=== PATIENT | male | born 1950 | race Caucasian/White ===

== ENCOUNTER 2023-04-13 09:25 | Emergency (ER) | payer MEDICARE, OTHER, SELFPAY ==
[2023-04-13 10:17] VITALS: BP 137/84; PULSE 54; RESP 18; TEMP 36.6; O2SAT 95; BMI 31.2
[2023-04-13 12:18] VITALS: BP 144/76; PULSE 47; RESP 16; TEMP 36.4; O2SAT 100
--- NOTE | 2023-04-13 12:39 | ED_ITS ---
HPI - Eye Problem General Chief complaint: Eye Problems Stated complaint: swollen under eye Time Seen by Provider: 04/13/23 12:15 Source: patient Mode of arrival: ambulatory Limitations: no limitations History of Present Illness HPI Narrative: 72 yo male Presents to the ER for evaluation of swelling and redness under the left eye that started yesterday when he woke up. Patient denies any injury or bug bite to the area. He denies any vision changes or drainage from the eye. He states it has been slowly getting little bit more swollen and red since yesterday. He denies any pain with movements of the eye. No headache, fever, chills, rash other were on the body. chief complaint: eye redness Onset (ago): day(s) (1) Onset description: gradual Duration: progressively worsening Location: left eye Eye Symptoms: redness and pain Place: home Mechanism: none Severity: moderate If Pain, Quality: aching Associated symptoms: none Treatments Prior to Arrival: none Related Data Patient tetanus UTD: Yes Home Medications Medication Instructions Recorded Confirmed atorvastatin 80 mg tablet 80 mg PO DAILY 10/12/21 10/12/21 enoxaparin 100 mg/mL subcutaneous mg subcut 10/12/21 10/12/21 syringe fenofibrate nanocrystallized 145 145 mg PO DAILY 10/12/21 10/12/21 mg tablet umeclidinium 62.5 mcg-vilanterol 1 ea inhalation DAILY 10/12/21 10/12/21 25 mcg/actuation powdr for inhalation (Anoro Ellipta) warfarin 5 mg tablet mg PO 10/12/21 10/12/21 Previous Rx's Medication Instructions Recorded erythromycin 5 mg/gram (0.5 %) eye 0.5 inch ophthalmic (eye) TID 7 01/26/22 ointment days #1 g amoxicillin 875 mg-potassium 1 tab PO BID #20 tabs 04/13/23 clavulanate 125 mg tablet Allergies Allergy/AdvReac Type Severity Reaction Status Date / Time bee pollen [BEE STINGS] Allergy Mild HIVES Unverified 01/26/22 10:56 Review of Systems Review of Systems: Yes all other systems are reviewed and are negative PMFSH Past Medical History Medical History Arterial embolism and thrombosis of lower extremity Social History Social History Advance Directives: Yes Advance Directives Information Provided: No Advance Directives on File: No Physical Exam Vital Signs: Vital Signs: Last Vital Signs Temp 97.5 F 04/13/23 12:18 Pulse 47 L 04/13/23 12:18 Resp 16 04/13/23 12:18 BP 144/76 H 04/13/23 12:18 Pulse Ox 100 04/13/23 12:18 O2 Del Method Room Air 04/13/23 12:18 BMI result Body Mass Index 31.2 Appearance: Alert. Oriented X3. No acute distress. Head: normocephalic, atraumatic. Eyes: normal inspection of the right eye and associated structures. Left upper eyelid and lower eyelid are normal to inspection, no super orbital swelling or erythema. In the area underneath left eye there is moderate erythema and warmth, mild tenderness. No induration or fluctuance. No drainage from the eye. Pupils equal, round and reactive to light. EOMI, no pain with Extraocular movement ENT: Pharynx normal. No tonsillar swelling or exudate. Neck: Normal inspection. Neck supple. No lymphadenopathy CVS: Normal heart rate and rhythm. Pulses normal. Respiratory: No respiratory distress. Breath sounds normal. Skin: Skin warm and dry. Normal skin color. Normal skin turgor. No rashes. Extremities: No lower extremity edema. No joint swelling. Neuro/psych: Oriented X 3. No motor deficit. No sensory deficit. CN II-XII intact. Normal speech and cognition. Medical Decision Making Medical Decision Making MDM Narrative: 72-year-old male presenting to the ER for evaluation of nontraumatic swelling and erythema under the left eye that started yesterday. He has no pain with extraocular movements, fever, chills, headache, neck pain. No vision changes or photophobia. Exam is most consistent with preseptal cellulitis. Will start on Augmentin, no MRSA risk factors. No open wounds. At this time patient was counseled on diagnosis and management along with return precautions. He expressed understanding and all questions were answered. Stable for discharge home. Differential Diagnosis Differential Diagnoses: The differential diagnosis associated with the presentation includes preseptal cellulitis, periorbital cellulitis, orbital cellulitis, insect bite, trauma, abscess External Record Review External record reviewed: Outpatient record Tests considered The following testing was considered but not selected: Considered CT scan of the orbit however low suspicion for orbital cellulitis at this time Prescription Management I considered prescription management with: Pain Medication and Antibiotic Critical Care Time Critical Care Time Critical Care Time: No Discharge Plan Discharge Clinical Impression: Preseptal cellulitis of left eye Patient Disposition: Home, Self-Care Instructions: Periorbital Cellulitis in Adults (ED) Additional Instructions: Take the prescribed antibiotics as directed, complete the entire course and do not miss any doses Use warm compresses to the eye several times per day Follow-up with your primary care doctor to ensure complete resolution. If you develop new or worsening symptoms call 911 or come back to the ER for fu rther evaluation. Prescriptions: New amoxicillin-pot clavulanate 875-125 mg tablet 1 tab PO BID Qty: 20 0RF No Action erythromycin 5 mg/gram (0.5 %) ointment 0.5 inch ophthalmic (eye) TID 7 Days Qty: 1 1RF Anoro Ellipta 62.5-25 mcg/actuation blister with device 1 ea inhalation DAILY enoxaparin 100 mg/mL syringe subcut atorvastatin 80 mg tablet 80 mg PO DAILY warfarin 5 mg tablet PO fenofibrate nanocrystallized 145 mg tablet 145 mg PO DAILY
--- NOTE | 2023-04-13 13:07 | PC.NURSE ---
aox4. swollen left eyelid. denies pain to left eye unlss closes it and 2/10. no vision changes per pt report. NAD. +CSM
== END 2023-04-13 13:11 | disposition home or self-care (01) ==
PROVIDERS: Emergency Provider Emergency Medicine; PCP Internal Medicine
DX: L03.213 Periorbital cellulitis (principal); H57.12 Ocular pain, left eye; Z86.718 Personal history of other venous thrombosis and embolism; Z79.01 Long term (current) use of anticoagulants; Z79.899 Other long term (current) drug therapy
CPT/HCPCS: 99283; 99284

== ENCOUNTER 2023-06-03 13:34 | Outpatient (AMB) | payer MEDICARE, OTHER, SELFPAY ==
[2023-06-03 13:43] VITALS: BP 130/76; PULSE 62; TEMP 36.6; O2SAT 98; BMI 32.2
--- NOTE | 2023-06-03 13:43 | AM.OFFWIN_ITS ---
Intake Vital Signs 06/03/23 13:43 Height 6 ft Weight 237 lb 6 oz BMI 32.2 BP 130/76 Blood Pressure Location Rt brachial Position Sitting Pulse 62 Pulse Source Pulse Oximeter Temp 97.8 F Temp Source Temporal Artery Scan Pulse Oximetry (%) 98 Intake Visit Reasons: EP RT eye ?Cellulitis Intake Note: pt is here for c/o right eye inflammation Patient Tobacco Use Status: Never used Tobacco Allergies bee pollen [BEE STINGS] Allergy (Mild, Verified 06/03/23 13:43) HIVES Do you need a note to return to daycare/school/sports/work: Yes HPI HPI Comments History of Present Illness Details This is a 72-year-old male with a past medical history of chronic sinusitus, hyperlipidemia and DVT currently maintained on Coumadin presenting for evaluation of redness and swelling under his right eye that has been present for the past 2 days. Of note, the patient was seen in the emergency department for a left preseptal cellulitis on April 13, 2023. The patient states that his symptoms resolved after completing his course of antibiotic therapy. Patient denies having any visual changes but does describe some discomfort of his right lower eyelid. He also denies having any fevers, chills or discharge from his right eye. [facility] Medical History Arterial embolism and thrombosis of lower extremity Social History Alcohol intake: current Alcohol intake frequency: holidays/special occasions only Patient Tobacco Use Status: Never used Tobacco Substance Use Type: Marijuana Review of Systems Const All systems reviewed & are unremarkable except as noted in HPI and below Denies chills and Denies fever(s) Eyes Reports as per HPI, Denies blurry vision, Denies exophthalmos, Denies change in vision, Reports eye pain (right lower eyelid) and Denies photophobia ENT Reports no additional complaints Skin/Breast Reports system reviewed and no additional complaints, except as documented Jayant/Lymph Reports no additional complaints Aller/Immun Reports no additional complaints Physical Exam Vital Signs: Last Vital Signs Temp 97.8 F 06/03/23 13:43 Pulse 62 06/03/23 13:43 BP 130/76 06/03/23 13:43 Pulse Ox 98 06/03/23 13:43 BMI result Body Mass Index 32.2 Patient is afebrile Const General: cooperative, healthy appearing, comfortable, no acute distress and well developed Nutritional Appearance: overweight Orientation/consciousness: patient oriented x3 Limitations: no limitations HEENT Head: Yes normal to inspection and Yes normocephalic Ears: hearing grossly normal bilaterally, external ears normal, TM's normal bilaterally and EAC's normal General nose exam: Normal external nose present Face and sinus: Yes normal facial exam and Yes sinuses nontender Mouth: Normal oral and palatal mucosa present Eyes General: appearance abnormal, both eyes (erythema and edema right lower ) Visual Harry: normal visual harry by confrontation Alignment and Position: alignment normal Periorbital: periorbital findings abnormal (erythema and edema right lower preorbital region) Eyelids: Yes eyelid abnormality (single pustule noted on inner mucous surface of right lower eyelid; tender) Conjunctivae: conjunctivae normal Sclerae: sclerae normal Pupils: Equal, round and reactive pupils present EOM: EOMs intact bilaterally Direct Ophthalmoscopy: no photophobia and No photophobia Skin General skin exam: other (erythema and edema right lower eyelid as noted above) Neuro General: patient oriented x3 Cranial nerves: Yes Equal, round and reactive pupils present Psych Appearance: grossly normal Mental Status: mental status grossly normal Insight: Good insight present (Psych) Judgement: Good judgement present (Psych) Assessment & Plan Assessment & Plan (1) Preseptal cellulitis of right lower eyelid: Code(s): L03.213 - Periorbital cellulitis Plan: There are no clinical abnormalities noted of the globe, conjunctiva or pupil of the right eye; there is edema and erythema involving the preseptal tissue of the right lower eyelid. Patient will be discharged home with cefpodoxime to take BID x 7 days. Of note, the patient has an appointment with ENT next week and he is urged to discuss his recurrent preseptal cellulitis with his ENT provider. Coding Level of Care Code Est Pt Level 3 (07211) Diagnoses Preseptal cellulitis of right lower eyelid L03.213 Time Spent (min) 20
== END 2023-06-03 14:28 | disposition home or self-care (01) ==
PROVIDERS: PCP Internal Medicine; Visit Provider Physician Assistant
DX: L03.213 Periorbital cellulitis (principal)
CPT/HCPCS: 99213

== ENCOUNTER 2023-07-11 07:50 | Day surgery (SDC) | payer MEDICARE, OTHER, SELFPAY ==
[2023-07-07 10:03] VITALS: BMI 32.9
[2023-07-07 16:06] VITALS: BMI 32.9
--- NOTE | 2023-07-08 07:47 | MHC.SHP ---
Pre-Procedural Eval Section A Date of Service: 07/08/23 The patient is an INPATIENT: No Changes since office visit: No Cold of Flu in the past 2 weeks, No New Medical Problems, No Changes in Medication and No Patient answered all questions The History & Physical has been completed within 30 days and I have reviewed it.: Yes Section B Chief Complaint: Age-related nuclear cataract, right eye Allergies: Allergies Allergy/AdvReac Type Severity Reaction Status Date / Time bee pollen [BEE STINGS] Allergy Mild HIVES Verified 06/03/23 13:43 Plan Diagnosis/Plan: Unchanged I have reviewed the history and physical and performed a pertinent physical examination on my patient. No changes have occurred unless specified. Time Spent With Patient Time: Total time managing care of this patient today ____ minutes.
--- NOTE | 2023-07-08 09:46 | P.CONAN_ITS ---
Documented by User: Giselle Salinas NP 07/08/23 09:47 HPI - Anesthesia Eval Consult details Narrative: 72yo M for Right Cataract Extraction IOL Insertion Medically cleared Warfarin for DVT No previous cataract on record PMF Active Problems Active Problems: All Active Problems (Updated 07/07/23 @ 16:12 by Stephanie Shay, RN) Preseptal cellulitis of right lower eyelid (Acute) Blepharitis (Acute) Past Medical History Medical History (Updated 07/11/23 @ 08:44 by Sophia Sanders RN) Hx of blood clots Wears dentures Cataract History of DVT (deep vein thrombosis) Pre-diabetes PAD (peripheral artery disease) Elevated cholesterol COPD (chronic obstructive pulmonary disease) Seasonal allergies Arterial embolism and thrombosis of lower extremity Surgical History Surgical History (Updated 07/11/23 @ 08:58 by Lori Garnica MD) DVT (deep venous thrombosis) Hx of colonoscopy Social History Social History Household Members: Spouse Housing: House Are you a primary health care specialist to a significant other at home: No Do you presently have visiting nurse or other home services: No Alcohol intake: current Alcohol intake frequency: holidays/special occasions only Comment: aware of trip hazard Patient Tobacco Use Status: Former Tobacco user Quit Date: 11/2022 Tobacco use type: Cigarette Use of substances other than those prescribed or required for medical reasons: Yes Substance Use Type: Marijuana Substance Use Frequency: Daily Have you been hit, kicked, punched, or otherwise hurt by someone within the past year? If so, by whom?: No Are you DNR?: No Advance Directives: No Advance Directives Information Provided: Yes Advance Directives on File: No Recently lost weight without trying: No Nutrition Risks: No Nutritional Risk Meds Allergies Allergy/AdvReac Type Severity Reaction Status Date / Time bee pollen [BEE STINGS] Allergy Mild HIVES Verified 07/11/23 08:12 Home Medications Medication Instructions Recorded Confirmed Last Taken Type umeclidinium 62.5 mcg-vilanterol 1 ea inhalation DAILY 10/12/21 07/07/23 Unknown History 25 mcg/actuation powdr for inhalation (Anoro Ellipta) warfarin 5 mg tablet mg PO 10/12/21 10/12/21 07/09/23 History atorvastatin 40 mg tablet 40 mg PO DAILY 06/03/23 07/07/23 Unknown History loratadine 10 mg tablet 10 mg PO DAILY PRN Allergy Symptoms 06/03/23 07/07/23 Unknown History Exam Height,Weight and Vital Signs: Height 5 ft 11 in Weight 107.048 kg Assessment and Plan Assessment Anesthesia Assessment: Chart Reviewed Documented by User: Lori Garnica MD 07/11/23 09:00 HPI - Anesthesia Eval Consult details Narrative: 72yo M for Right Cataract Extraction IOL Insertion Medically cleared Warfarin for DVT. Has been on warfarin for about 10years. Only omitted yesterday's dose No previous cataract on record PMFSH Active Problems Active Problems: All Active Problems (Updated 07/11/23 @ 08:43 by Lori Garnica MD) Preseptal cellulitis of right lower eyelid (Acute) Blepharitis (Acute) Cellulitis left eyelid 04/2023, Cellulitis right eyelid 06/2020. Had course of oral antibiotics for both. Have since resolved Last dose of warfarin 07/09/23 Past Medical History Medical History (Updated 07/11/23 @ 08:44 by Sophia Sanders RN) Hx of blood clots Wears dentures Cataract History of DVT (deep vein thrombosis) Pre-diabetes PAD (peripheral artery disease) Elevated cholesterol COPD (chronic obstructive pulmonary disease) Seasonal allergies Arterial embolism and thrombosis of lower extremity Family History Family history of problems with anesthesia: No Surgical History Surgical History (Updated 07/11/23 @ 08:58 by Lori Garnica MD) DVT (deep venous thrombosis) Hx of colonoscopy History of Problems with Anesthesia: No Social History Social History Household Members: Spouse Housing: House Are you a primary health care specialist to a significant other at home: No Do you presently have visiting nurse or other home services: No Alcohol intake: current Alcohol intake frequency: holidays/special occasions only Comment: aware of trip hazard Patient Tobacco Use Status: Former Tobacco user Quit Date: 11/2022 Tobacco use type: Cigarette Use of substances other than those prescribed or required for medical reasons: Yes Substance Use Type: Marijuana Substance Use Frequency: Daily Have you been hit, kicked, punched, or otherwise hurt by someone within the past year? If so, by whom?: No Are you DNR?: No Advance Directives: No Advance Directives Information Provided: Yes Advance Directives on File: No Recently lost weight without trying: No Nutrition Risks: No Nutritional Risk Meds Allergies Allergy/AdvReac Type Severity Reaction Status Date / Time bee pollen [BEE STINGS] Allergy Mild HIVES Verified 07/11/23 08:12 Home Medications Medication Instructions Recorded Confirmed Last Taken Type umeclidinium 62.5 mcg-vilanterol 1 ea inhalation DAILY 10/12/21 07/07/23 Unknown History 25 mcg/actuation powdr for inhalation (Anoro Ellipta) warfarin 5 mg tablet mg PO 10/12/21 10/12/21 07/09/23 History atorvastatin 40 mg tablet 40 mg PO DAILY 06/03/23 07/07/23 Unknown History loratadine 10 mg tablet 10 mg PO DAILY PRN Allergy Symptoms 06/03/23 07/07/23 Unknown History Exam Height,Weight and Vital Signs: Height 5 ft 11 in Weight 107.048 kg Vital Signs Temp Pulse Resp BP Pulse Ox O2 Del Method 07/11/23 08:36 98.0 F 50 18 151/83 H 97 Room Air Airway Mallampati Class: III TM Dist: >3cm Neck ROM: Full Denture: Upper Loose/Missing/Broken Teeth: Yes (Missing some teeth bottom. Denies broken or loose teeth) Heart: RRR Lungs: CATB. Diminished Assessment and Plan Assessment Anesthesia Assessment: Anesthesia Plan Discussed Final Anesthetic Review Family History of Problems with Anesthesia: No History of Problems with Anesthesia: No NPO: Yes ASA Class: III Final Preanesthetic Review: No Changes in Pt Med Stat, Meds/Allgs Chart Reviewed, Consent Obtained/Reviewed and Anes Risks/Benef Reviewed Patient Risk: Intermediate Procedure Risk: Low Assessment/Block/Sedation in SS: Assess/Block/Sedation-SS Anesthetic Plan Anesthetic Plan: MAC: Disposition: Standard PACU
[2023-07-11] MEDS: Lactated Ringers 500 ML 50 ML IV (08:22)
[2023-07-11] MEDS: Ketorolac Tromethamine 0.5% Op 5 ML DROPS 1 DROP EYE-RIGHT ×3 (08:23→08:34)
[2023-07-11] MEDS: Tropicamide 1 % Ophth Sol 3 ML BTL 1 DROP EYE-RIGHT ×3 (08:23→08:34)
[2023-07-11] MEDS: Phenylephrine HCL 2.5% Oph SoL 2 ML BOTTLE 1 DROP EYE-RIGHT ×3 (08:23→08:34)
[2023-07-11] MEDS: Tetracaine HCl/PF 0.5% Oph Sol 4 ML DROPS 1 DROP EYE-RIGHT (08:23)
[2023-07-11] MEDS: Cyclopentolate 1 % Ophth Sol 2 ML DRPBTL 1 DROP EYE-RIGHT ×3 (08:23→08:34)
[2023-07-11 08:36] VITALS: BP 151/83; PULSE 50; RESP 18; TEMP 36.7; O2SAT 97
--- NOTE | 2023-07-11 09:42 | HO.PNOPHT ---
Ophthalmology Procedure Procedure Date of Service: 07/11/23 Ophthalmology Viscoelastic: Healcharissa Duet Dual Pack Pro Ophthalmology Lenses: TECNIS [id number] (19.5) Procedure Notes: PREOPERATIVE DIAGNOSIS: Decreased visual acuity right eye secondary to cataract POSTOPERATIVE DIAGNOSIS: Same PROCEDURE: Right cataract extraction with intraocular lens insertion SURGEON: Marvin Jaramillo M.D. ANESTHESIA: Topical/MAC ESTIMATED BLOOD LOSS: None COMPLICATIONS: None After obtaining informed consent, the patient was brought to the operating room suite and placed in the supine position. After adequate sedation per anesthesia, topical drops of Tetracaine were given to the right eye. The eye was then prepped and draped in the usual sterile fashion. The operating room microscope was then positioned over the operative eye and a lid speculum placed. A paracentesis was created. Viscoelastic was then instilled into the anterior chamber. A three plane incision was then created temporally, utilizing a 2.85 mm keratome. Capsulotomy forceps were then utilized to create a circular tear capsulotomy. Hydrodissection and hydrodelineation were carried out until adequate mobilization of the nucleus occurred. Phacoemulsification was then utilized to remove the dense central nucleus followed by removal of the cortical material utilizing the automated aspiration irrigation unit. Viscoelastic was instilled into the posterior capsular bag followed by placement of a posterior chamber intraocular lens without difficulty. The residual Viscoelastic was then removed utilizing the automated IA machine. The wound was checked and found to be watertight. The patient tolerated the procedure well and the lid speculum was removed. Intracameral injection of Vigamox 0.1 mL followed by a subtenon injection of Kenalog-40 0.2 mL were administered. The patient will be seen in the a.m.
[2023-07-11 10:08] VITALS: BP 153/86; PULSE 54; RESP 17; TEMP 36.2; O2SAT 98
== END 2023-07-11 10:11 | disposition home or self-care (01) ==
PROVIDERS: PCP Internal Medicine; Visit Provider Ophthalmology
PROC: (CPT 66985; principal; 2023-07-11 10:00)
DX: H25.11 Age-related nuclear cataract, right eye (principal); H54.7 Unspecified visual loss; H40.013 Open angle with borderline findings, low risk, bilateral; H18.413 Arcus senilis, bilateral; H43.393 Other vitreous opacities, bilateral; H11.153 Pinguecula, bilateral; E78.00 Pure hypercholesterolemia, unspecified; R73.03 Prediabetes; I73.9 Peripheral vascular disease, unspecified; J44.9 Chronic obstructive pulmonary disease, unspecified; Z86.718 Personal history of other venous thrombosis and embolism; Z79.01 Long term (current) use of anticoagulants; Z79.899 Other long term (current) drug therapy; Z79.51 Long term (current) use of inhaled steroids; Z87.891 Personal history of nicotine dependence
CPT/HCPCS: 66984; J2250; J3010; J3301; V2632

== ENCOUNTER 2023-07-25 06:00 | Day surgery (SDC) | payer MEDICARE, OTHER, SELFPAY ==
[2023-07-07 16:10] VITALS: BMI 32.9
--- NOTE | 2023-07-22 07:16 | MHC.SHP ---
Pre-Procedural Eval Section A Date of Service: 07/22/23 The patient is an INPATIENT: No Changes since office visit: No Cold of Flu in the past 2 weeks, No New Medical Problems, No Changes in Medication and No Patient answered all questions The History & Physical has been completed within 30 days and I have reviewed it.: Yes Section B Chief Complaint: Age-related nuclear cataract, left eye Allergies: Allergies Allergy/AdvReac Type Severity Reaction Status Date / Time bee pollen [BEE STINGS] Allergy Mild HIVES Verified 07/11/23 08:12 Plan Diagnosis/Plan: Unchanged I have reviewed the history and physical and performed a pertinent physical examination on my patient. No changes have occurred unless specified. Time Spent With Patient Time: Total time managing care of this patient today ____ minutes.
--- NOTE | 2023-07-22 09:31 | HO.ANESPROP2 ---
Documented by User: Giselle Salinas NP 07/22/23 09:32 HPI - Anesthesia Eval Consult details Narrative: 72yo M for Cataract Extraction IOL Insertion PCP cleared Right eye 07/11/23: Fent 50, Midaz 1, Glyco 0.2 Warfarin for DVT/PAD PMFSH Active Problems Active Problems: All Active Problems (Updated 07/11/23 @ 08:44 by Sophia Sanders RN) Preseptal cellulitis of right lower eyelid (Acute) Blepharitis (Acute) Past Medical History Medical History Hx of blood clots Wears dentures Cataract History of DVT (deep vein thrombosis) Pre-diabetes PAD (peripheral artery disease) Elevated cholesterol COPD (chronic obstructive pulmonary disease) Seasonal allergies Arterial embolism and thrombosis of lower extremity Family History Family history of problems with anesthesia: No Surgical History Surgical History DVT (deep venous thrombosis) Hx of colonoscopy History of Problems with Anesthesia: No Social History Social History Household Members: Spouse Housing: House Are you a primary summer child caregiver to a significant other at home: No Do you presently have visiting nurse or other home services: No Alcohol intake: current Alcohol intake frequency: holidays/special occasions only Comment: aware of trip hazard Patient Tobacco Use Status: Former Tobacco user Quit Date: 11/2022 Tobacco use type: Cigarette Use of substances other than those prescribed or required for medical reasons: Yes Substance Use Type: Marijuana Substance Use Frequency: Daily Have you been hit, kicked, punched, or otherwise hurt by someone within the past year? If so, by whom?: No Are you DNR?: No Advance Directives: No Advance Directives Information Provided: Yes Advance Directives on File: No Recently lost weight without trying: No Nutrition Risks: No Nutritional Risk Meds Allergies Allergy/AdvReac Type Severity Reaction Status Date / Time bee pollen [BEE STINGS] Allergy Mild HIVES Verified 07/25/23 06:36 Home Medications Medication Instructions Recorded Confirmed Last Taken Type umeclidinium 62.5 mcg-vilanterol 1 ea inhalation DAILY 10/12/21 07/07/23 Unknown History 25 mcg/actuation powdr for inhalation (Anoro Ellipta) warfarin 5 mg tablet 5 mg PO DAILY 10/12/21 07/25/23 07/23/23 History atorvastatin 40 mg tablet 40 mg PO DAILY 06/03/23 07/07/23 Unknown History loratadine 10 mg tablet 10 mg PO DAILY PRN Allergy Symptoms 06/03/23 07/07/23 Unknown History Exam Height,Weight and Vital Signs: Height 5 ft 11 in Weight 107.048 kg Assessment and Plan Assessment Anesthesia Assessment: Chart Reviewed Final Anesthetic Review Family History of Problems with Anesthesia: No History of Problems with Anesthesia: No Documented by User: Juliana Loza MD 07/25/23 06:55 PMFSH Past Medical History Medical History Hx of blood clots Wears dentures Cataract History of DVT (deep vein thrombosis) Pre-diabetes PAD (peripheral artery disease) Elevated cholesterol COPD (chronic obstructive pulmonary disease) Seasonal allergies Arterial embolism and thrombosis of lower extremity Surgical History Surgical History DVT (deep venous thrombosis) Hx of colonoscopy Social History Social History Household Members: Spouse Housing: House Are you a primary summer child caregiver to a significant other at home: No Do you presently have visiting nurse or other home services: No Alcohol intake: current Alcohol intake frequency: holidays/special occasions only Comment: aware of trip hazard Patient Tobacco Use Status: Former Tobacco user Quit Date: 11/2022 Tobacco use type: Cigarette Use of substances other than those prescribed or required for medical reasons: Yes Substance Use Type: Marijuana Substance Use Frequency: Daily Have you been hit, kicked, punched, or otherwise hurt by someone within the past year? If so, by whom?: No Are you DNR?: No Advance Directives: No Advance Directives Information Provided: Yes Advance Directives on File: No Recently lost weight without trying: No Nutrition Risks: No Nutritional Risk Meds Allergies Allergy/AdvReac Type Severity Reaction Status Date / Time bee pollen [BEE STINGS] Allergy Mild HIVES Verified 07/25/23 06:36 Home Medications Medication Instructions Recorded Confirmed Last Taken Type umeclidinium 62.5 mcg-vilanterol 1 ea inhalation DAILY 10/12/21 07/07/23 Unknown History 25 mcg/actuation powdr for inhalation (Anoro Ellipta) warfarin 5 mg tablet 5 mg PO DAILY 10/12/21 07/25/23 07/23/23 History atorvastatin 40 mg tablet 40 mg PO DAILY 06/03/23 07/07/23 Unknown History loratadine 10 mg tablet 10 mg PO DAILY PRN Allergy Symptoms 06/03/23 07/07/23 Unknown History Exam Airway Mallampati Class: II TM Dist: >3cm Neck ROM: Full Denture: Upper Heart: rrr Lungs: cta Assessment and Plan Assessment Anesthesia Assessment: Anesthesia Plan Discussed Final Anesthetic Review NPO: Yes ASA Class: III Final Preanesthetic Review: No Changes in Pt Med Stat, Meds/Allgs Chart Reviewed and Consent Obtained/Reviewed Patient Risk: Intermediate Procedure Risk: Low Anesthetic Plan Anesthetic Plan: MAC: Disposition: Standard PACU
[2023-07-25] MEDS: Tetracaine HCl/PF 0.5% Oph Sol 4 ML DROPS 1 DROP EYE-LEFT (06:18)
[2023-07-25] MEDS: Cyclopentolate 1 % Ophth Sol 2 ML DRPBTL 1 DROP EYE-LEFT ×3 (06:21→06:37)
[2023-07-25] MEDS: Tropicamide 1 % Ophth Sol 3 ML BTL 1 DROP EYE-LEFT ×3 (06:23→06:39)
[2023-07-25] MEDS: Ketorolac Tromethamine 0.5% Op 5 ML DROPS 1 DROP EYE-LEFT ×3 (06:25→06:41)
[2023-07-25] MEDS: Phenylephrine HCL 2.5% Oph SoL 2 ML BOTTLE 1 DROP EYE-LEFT ×3 (06:27→06:43)
[2023-07-25] MEDS: Lactated Ringers 500 ML 50 ML IV (06:33)
[2023-07-25 06:35] VITALS: BP 135/91; PULSE 54; RESP 16; TEMP 36.2; O2SAT 97
--- NOTE | 2023-07-25 08:00 | HO.PNOPHT ---
Ophthalmology Procedure Procedure Date of Service: 07/25/23 Ophthalmology Viscoelastic: Healon Duet Dual Pack Pro Ophthalmology Lenses: TECAJAY CP0001 (19) Procedure Notes: PREOPERATIVE DIAGNOSIS: Decreased visual acuity left eye secondary to cataract POSTOPERATIVE DIAGNOSIS: Same PROCEDURE: Left cataract extraction with intraocular lens insertion SURGEON: Marvin Jaramillo M.D. ANESTHESIA: Topical/MAC ESTIMATED BLOOD LOSS: None COMPLICATIONS: None After obtaining informed consent, the patient was brought to the operation room suite and placed in the supine position. After adequate sedation per anesthesia, topical drops of Tetracaine were given to the left eye. The eye was then prepped and draped in the usual sterile fashion. The operating room microscope was then positioned over the operative eye and a lid speculum placed. A paracentesis was created. Viscoelastic was then instilled into the anterior chamber. A three plane incision was then created temporally, utilizing a 2.85 mm keratome. Capsulotomy forceps were then utilized to create a circular tear capsulotomy. Hydrodissection and hydrodelineation were carried out until adequate mobilization of the nucleus occurred. Phacoemulsification was then utilized to remove the dense central nucleus followed by removal of the cortical material utilizing the automated aspiration irrigation unit. Viscoat elastic was instilled into the posterior capsular bag followed by placement of a posterior chamber intraocular lens without difficulty. The residual Viscoat elastic was then removed utilizing the automated IA machine. The wound was check and found to be watertight. The patient tolerated the procedure well and the lid speculum was removed. Intracameral injection of Vigamox 0.1 mL followed by a subtenon injection of Kenalog-40 0.2 mL were administered. The patient will be seen in the a.m.
[2023-07-25 08:02] VITALS: BP 150/85; PULSE 48; RESP 20; TEMP 36.2; O2SAT 95
== END 2023-07-25 08:15 | disposition home or self-care (01) ==
PROVIDERS: PCP Internal Medicine; Visit Provider Ophthalmology
PROC: (CPT 66985; principal; 2023-07-25 07:30)
DX: H25.12 Age-related nuclear cataract, left eye (principal); H54.7 Unspecified visual loss; J44.9 Chronic obstructive pulmonary disease, unspecified; E78.5 Hyperlipidemia, unspecified; Z86.718 Personal history of other venous thrombosis and embolism; R73.03 Prediabetes; Z87.891 Personal history of nicotine dependence; F12.90 Cannabis use, unspecified, uncomplicated; Z79.01 Long term (current) use of anticoagulants; Z79.02 Long term (current) use of antithrombotics/antiplatelets; Z79.899 Other long term (current) drug therapy
CPT/HCPCS: 66984; J2250; J3010; J3301; V2632

== ENCOUNTER 2025-02-07 12:02 | Outpatient (AMB) | payer MEDICARE, OTHER, SELFPAY ==
[2025-02-07 12:21] VITALS: BP 100/50; PULSE 56; TEMP 36.8; O2SAT 97; BMI 33.5
--- NOTE | 2025-02-07 12:21 | AM.OFFWIN_ITS ---
Intake Vital Signs 02/07/25 12:21 Height 5 ft 11 in Weight 240 lb BMI 33.5 BP 100/50 L Blood Pressure Location Rt brachial Position Sitting Pulse 56 Pulse Source Pulse Oximeter Temp 98.2 F Temp Source Oral Pulse Oximetry (%) 97 Oxygen Delivery Method Room Air Intake Visit Reasons: EP severe back pain Intake Note: presents with low back pain, LT>RT for a few days, denies injury Patient Tobacco Use Status: Former Tobacco user Allergies bee pollen (BEE STINGS) Allergy (Mild, Verified 02/07/25 12:23) HIVES Do you need a note to return to daycare/school/sports/work: No HPI HPI Comments History of Present Illness Details History - The patient is a 74-year-old male pres enting with back pain due to muscle spasm. - The back pain started approximately th ree days ago without any known inciting event. - The pain is localized to the lower vinay k, predominantly on the left side, and does not radiate to the legs. - The pain is intermittent, exacerbated by movement, and has progressively worsened. - The patient has not taken any medicati on for the pain and has no history of using muscle relaxants. - The patient has not been comfortable a nd has pain with sitting, walking, or laying down. - He denies saddle anesthesia, numbness, tingling, incontinence, hematuria, dysuria, abd pain, n/v/d. - He denies rashes. - He denies trauma or falls. Physical Exam General: cooperative, healthy appearing and uncomfortable, patient oriented x3 Head: Normal to inspection, normocephalic/atraumatic Effort & Inspection: Normal respiratory effort and able to speak in complete sentences. Cardiac: RRR, no M/R/G noted. Normal S1 and S2. Respiratory: Clear to auscultation bilaterally. No w/r/r noted. Back/spine: No CVA tenderness bilaterally. Cervical, thoracic and lumbar spine normal to inspection. Cervical ROM normal, no midline spinous tenderness noted. Thoracic ROM normal, lumbar ROM normal. No midline vertebral spinous tenderness noted. No step offs noted. No TTP of the thoracic paraspinous or paravertebral muscles. TTP of the lumbar paraspinous or paravertebral muscles on the left. DTR are 2+ on the lower extremities noted. Ambulates with a steady gait, slowly Extremities: Straight leg raise test negative on right; Straight leg raise test negative on left; motor strength normal 5/5 bilaterally. Neuro: Sensation intact. Patient was informed and verbally consented to the use of an ambient scribe for clinic note documentation during this visit. [facility] Medical History Hx of blood clots Wears dentures Cataract History of DVT (deep vein thrombosis) Pre-diabetes PAD (peripheral artery disease) Elevated cholesterol COPD (chronic obstructive pulmonary disease) Seasonal allergies Arterial embolism and thrombosis of lower extremity Surgical History DVT (deep venous thrombosis) Hx of colonoscopy Social History Household Members: Spouse Housing: House Are you a primary health care coordinator to a significant other at home: No Do you presently have visiting nurse or other home services: No Alcohol intake: current Alcohol intake frequency: holidays/special occasions only Comment: aware of trip hazard Patient Tobacco Use Status: Former Tobacco user Tobacco use type: Cigarette Substance Use Type: Marijuana Review of Systems Const All systems reviewed & are unremarkable except as noted in HPI and below Physical Exam Vital Signs: Last Vital Signs Temp 98.2 F 02/07/25 12:21 Pulse 56 02/07/25 12:21 BP 100/50 L 02/07/25 12:21 Pulse Ox 97 02/07/25 12:21 Oxygen Delivery Method Room Air 02/07/25 12:21 BMI result Body Mass Index 33.5 Assessment & Plan Assessment & Plan (1) Lower back pain: Code(s): M54.50 - Low back pain, unspecified Qualifiers: Back pain laterality: left Chronicity: acute Sciatica presence: without sciatica Qualified Code(s): M54.50 - Low back pain, unspecified Plan Most likely spasm vs sciatica vs arthritis Plan - Rest, heat and/or ice to the area - tylenol or motrin as needed for pain - Prescribed an anti-inflammatory, a muscle relaxant, and prednisone to alleviate the muscle spasm. - Advised to contact primary care physician if symptoms do not improve for potential physical therapy referral. - Instructed to monitor for any new symptoms such as numbness, tingling, or incontinence and report if they occur. Medications: New naproxen 500 mg PO Q12H PRN 14 tabs 0RF pain 7 days prednisone 50 mg PO QAM 5 tabs 0RF 5 days cyclobenzaprine 5 mg PO Q8H PRN 10 tabs 0RF Muscle Spasm 7 days Coding Level of Care Code Est Pt Level 4 (40174) Diagnoses Acute left-sided low back pain without sciatica M54.50 Back pain laterality: left Chronicity: acute Sciatica presence: without sciatica
--- OUTSIDE RECORDS SUMMARY | 2025-02-07 12:32 | XMS_ITS | Continuity of Care Document ---
Author Name [facility] Organization [facility] Care Team Providers Care Exhibition Carver Name Role Phone [facility] Unavailable Unavailable Problems Combined list of problems from Department of 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 It does not include entries that were removed or entered in error. Problem Status Onset Date Problem Type Date of Resolution Comments Source Adjustment disorder with anxious mood (SNOMED CT 28624436) Active Condition [facility] Allergic Rhinitis (SCT 24233012) Active Condition [facility] Chronic obstructive lung disease Active Condition Jul 03, 2018 Entered By: BLAKE RUBI Comment: LDCT 09/23/17 emphysematous disease and nonspecific pulm noduleDec 2018 Entered By: BLAKE RUBI Comment: LDCT 09/27/18 unchanged [facility] Colonoscopy Screening Active Condition December 24, 2024 Entered By: KILEY SMITH Comment: 05/21/19 - Jory - int hemorr - repeat 10 yrs - Dr De La Torre [facility] Coronary arteriosclerosis Active Condition [facility] Deep vein thrombosis Active Condition [facility] History of actinic keratosis Active Condition [facility] Lichen simplex chronicus (SNOMED CT 08112613) Active Condition [facility] Mixed hyperlipidemia Active Condition [place] Peripheral vascular disease Active Condition [facility] Prediabetes Active Condition [place] Ringing in ears Active Condition [facility] Tobacco user Active Condition [place] Diagnosis: ICD-10-CM H40.013 Open angle with borderline findings, low risk, bilateral Active Diagnosis [facility] Diagnosis: ICD-10-CM E78.2 Mixed hyperlipidemia Active Diagnosis [place] Diagnosis: ICD-10-CM L28.1 Prurigo nodularis Active Diagnosis [facility] Diagnosis: ICD-10-CM Z46.0 Encounter for fit/adjst of spectacles and contact lenses Active Diagnosis [facility] Diagnosis: ICD-10-CM K62.0 Anal polyp Active Diagnosis [facility] Diagnosis: ICD-10-CM R73.01 Impaired fasting glucose Active Diagnosis [place] Medications Combined list of outpatient medications from Department of 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Medications provided include 1) outpatient medications from the last 15 months, and 2) patient-reported medications. Medication Details Route Status Patient Instructions Prescription Expires Prescription Number Last Dispense Date Ordering Provider Order Date Order Qty Source ATORVASTATI N CA 80MG TAB TAKE ONE-HALF TABLET BY MOUTH AT BEDTIME ORAL ACTIVE EUSEBIA VILLEGAS 2023 [facility] IELD carboxymeth ylcel 0.5% EYE DROP [2 X15ML] INSTILL 1 DROP INTO EACH EYE FOUR TIMES DAILY NEEDED FOR DRY EYE 01/19/2025 [id number] ANKIT COUCH 2023 45 [facility] CARBOXYMETH YLCELLULOSE NA 0.5% SOLN,OPH INSTILL 1 DROP INTO EACH EYE FOUR TIMES DAILY NEEDED FOR DRY EYE OPHTHA LMIC 01/19/2025 [id number] 4 ADRY COUCH 2023 45 [facility] Chantix (Varencline Eq.) Tablet 1 mg Oral TAKE ONE TABLET BY MOUTH TWICE DAILY FOR SMOKING CESSATIO N 09/26/2024 [id number] 4 MITA VILLEGAS 2023 56 [facility] CHOLECALCIF CHUCK 1,250MCG (50,000UNIT ) CAP,ORAL TAKE ONE CAPSULE BY MOUTH ONCE A WEEK ORAL DISCONT INUED BY PROVIDE R 12/30/2024 [id number] 4 EUSEBIA VILLEGAS 2023 13 [facility] IELD CHOLECALCIF CHUCK 1,250MCG (50,000UNIT ) CAP,ORAL TAKE ONE CAPSULE BY MOUTH QWEEKLY ORAL DISCONT INUED (EDIT) 12/23/2024 [id number] 4 EUSEBIA VILLEGAS 2023 13 [place] CLOBETASOL PROPIONATE 0.05% CREAM,TOP APPLY A THIN LAYER TOPICALL Y TWICE DAILY NEEDED FOR ITCHING/ RASH APPLY TO AFFECTED AREAS ON LEFT CALF FOR 2-4 WEEKS, THEN NEEDED. MAX 14 DAYS/MON TH FOR ITCHING/ RASH APPLY TO AFFECTED AREAS ON LEFT CALF FOR 2-4 WEEKS, THEN NEEDED. MAX 14 DAYS/MON TH TOPICA L ACTIVE 08/29/2025 [id number] 5 TANIA WAGNER 2024 60 [facility] ENOXAPARIN SODIUM (enoxaparin sodium), 100 MG/ML, SYRINGE, SUBCUT, SANDOZ, 1 ml SYRINGE Cancele d [id number] : 2023 0 Pharmac y [facility] Facilit y FENOFIBRATE 145MG TAB TAKE ONE TABLET BY MOUTH ONCE DAILY ORAL ACTIVE BUDDY ESTRADA 2017 IELD FLUTICASONE PROPIONATE 50MCG/SPRAY SOLN,NASAL, 16GM INSTILL 1 SPRAY INTO EACH NOSTRIL EVERY DAY NASAL ACTIVE OLIVE ESPAÑA 2022 IELD KETOCONAZOL E 2% SHAMPOO SHAMPOO SMALL AMOUNT TOPICALL Y TWICE A WEEK NEEDED SCALP RASH APPLY FOR 8 WEEKS, THEN NEEDED TOPICA L ACTIVE 08/29/2025 [id number] TANIA WAGNER 2024 120 [facility] LORATADINE 10MG TAB TAKE ONE TABLET BY MOUTH EVERY DAY ORAL ACTIVE OLIVE ESPAÑA 2022 [place] TAMSULOSIN HCL 0.4MG CAP TAKE 2 CAPSULES BY MOUTH ONCE DAILY ORAL ACTIVE LOUIE SMITH SA 2024 [place] UMECLIDINIU M 62.5MCG/JARRETT ANTEROL 25MCG/ACTUA T INH,ORAL,30 D INHALE 1 INHALATI ON BY MOUTH ONCE DAILY RESPIR ATORY (INHAL ATION) ACTIVE BUDDY ESTRADA 2017 [facility] IE VARENICLINE 1MG TAB TAKE ONE TABLET BY MOUTH TWICE DAILY FOR SMOKING CESSATIO N ORAL DISCONT INUED BY PROVIDE R 09/26/2024 [id number] EUSEBIA VILLEGAS 2023 56 [facility] IELD Vitamin D Capsule Conventiona l 50,000 Internation al Units Oral TAKE ONE CAPSULE BY MOUTH ONCE A WEEK 12/30/2024 [id number] 4 MITA VILLEGAS 2023 13 [facility] Vitamin D Capsule Conventiona l 50,000 Internation al Units Oral TAKE ONE CAPSULE BY MOUTH QWEEKLY Discont inued 12/23/2024 [id number] 4 MITA VILLEGAS 2023 13 [facility] WARFARIN (NON-VA) TAB TAKE BY MOUTH ORAL ACTIVE BUDDY ESTRADA 2017 [facility] IELD Immunizations Combined list of available immunizations from the Department of 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 Immunization Series Date Given Administered By Site Reaction Lot Number CVX Code Drug Airport Engineer Status Comments Source TDAP 2022 FLOWER SMITH LEFT DELTO ID L 115 complet ed [facility] [place] ZOSTER RECOMBINANT 2 2021 187 complet ed [facility] IELD COVID-19 (PFIZER), MRNA, LNP-S, PF, 30 MCG/0.3 ML DOSE 3 2020 208 complet ed [facility] COVID-19 (PFIZER), MRNA, LNP-S, PF, 30 MCG/0.3 ML DOSE 2 2020 208 complet ed [facility] COVID-19 (PFIZER), MRNA, LNP-S, PF, 30 MCG/0.3 ML DOSE 1 2020 208 complet ed [facility] ZOSTER RECOMBINANT 1 2019 187 complet ed [place] INFLUENZA, UNSPECIFIED FORMULATION 2019 88 complet ed [facility] INFLUENZA, INJECTABLE, QUADRIVALENT, PRESERVATIVE FREE 2018 150 complet ed Site: Left Deltoid [facility] PNEUMOCOCCAL POLYSACCHARID E PPV23 2018 33 complet ed [facility] INFLUENZA, SEASONAL, INJECTABLE 2017 141 complet ed [place] [facility] PNEUMOCOCCAL CONJUGATE PCV 13 2016 133 complet ed [place] [facility] ZOSTER LIVE 2012 121 complet ed yes [facility] FLU,3 YRS (HISTORICAL) 2012 88 complet ed [facility] TDAP 2012 115 complet ed [facility] Results Combined list of recent chemistry, hematology and other laboratory results from Department of Defense and Veterans Affairs, ranging from 15 months to all on record, depending upon the facility. Order Name Results Value Reference Range Date Interpretation Specimen Comments Source VITAMIN D (25-OH) 25-HYDROXYV ITAMIN D3 [MASS/VOLUM E] IN SERUM OR PLASMA 13 ng/mL 20 - 50 12/18 L Specimen Type: SERUM No comment entered. Ordering Provider: GABRIEL VILLEGAS Report Released Date/Time: Nov 18, 2023 11:03 AM Reporting Lab: [facility] [place] [facility] [address] [facility] [address] Performing Lab: [facility] [place] [facility] [address] [facility] [address] [place] LIPID PANEL FASTING CHOLESTEROL [MASS/VOLUM E] IN SERUM OR PLASMA 163 mg/dL 12/18 Specimen Type: SERUM No comment entered. Ordering Provider: SHAYE ESPAÑA Report Released Date/Time: December 07, 2022 09:38 AM Reporting Lab: [facility] [place] [facility] [address] [facility] [address] Performing Lab: [facility] [address] [facility] [address] [place] LIPID PANEL FASTING TRIGLYCERID E [MASS/VOLUM E] IN SERUM OR PLASMA 248 mg/dL 0 - 150 12/18 H Specimen Type: SERUM No comment entered. Ordering Provider: SHAYE ESPAÑA Report Released Date/Time: December 07, 2022 09:38 AM Reporting Lab: [facility] [address] [address] Performing Lab: [facility] [address] [facility] [address] [place] LIPID PANEL FASTING CHOLESTEROL IN LDL [MASS/VOLUM E] IN SERUM OR PLASMA BY CALCULATION 84 mg/dL 0 - 129 12/18 Specimen Type: SERUM No comment entered. Ordering Provider: SHAYE ESPAÑA Report Released Date/Time: December 07, 2022 09:38 AM Reporting Lab: [address] [address] Performing Lab: [facility] [address] [address] [place] LIPID PANEL FASTING CHOLESTEROL .TOTAL/CHOL ESTEROL IN HDL [MASS RATIO] IN SERUM OR PLASMA 5.6 12/18 Specimen Type: SERUM No comment entered. Ordering Provider: SHAYE ESPAÑA Report Released Date/Time: December 07, 2022 09:38 AM Reporting Lab: [address] [address] Performing Lab: [facility] [address] [address] [place] LIPID PANEL FASTING CHOLESTEROL IN HDL [MASS/VOLUM E] IN SERUM OR PLASMA 29 mg/dL 40 - 60 12/18 L Specimen Type: SERUM No comment entered. Ordering Provider: SHAYE ESPAÑA Report Released Date/Time: December 07, 2022 09:38 AM Reporting Lab: [facility] [address] [address] Performing Lab: [facility] [address] [address] [place] BASIC METABOLIC PANEL (fasting) UREA NITROGEN [MASS/VOLUM E] IN SERUM OR PLASMA 26 mg/dL 7 - 25 12/18 H Specimen Type: SERUM No comment entered. Ordering Provider: SHAYE ESPAÑA Report Released Date/Time: December 07, 2022 09:38 AM Reporting Lab: [facility] [address] [facility] [address] Performing Lab: [facility] [address] [facility] [address] [place] BASIC METABOLIC PANEL (fasting) GLUCOSE [MASS/VOLUM E] IN SERUM OR PLASMA 103 mg/dL 65 - 100 12/18 H Specimen Type: SERUM No comment entered. Ordering Provider: SHAYE ESPAÑA Report Released Date/Time: December 07, 2022 09:38 AM Reporting Lab: [facility] [address] [address] Performing Lab: [facility] [address] [address] [place] BASIC METABOLIC PANEL (fasting) SODIUM [MOLES/VOLU ME] IN SERUM OR PLASMA 141 mmol/L 135 - 145 12/18 Specimen Type: SERUM No comment entered. Ordering Provider: SHAYE ESPAÑA Report Released Date/Time: December 07, 2022 09:38 AM Reporting Lab: [facility] [address] [address] Performing Lab: [facility] [address] [address] [place] BASIC METABOLIC PANEL (fasting) POTASSIUM [MOLES/VOLU ME] IN SERUM OR PLASMA 4.1 mmol/L 3.5 - 5.0 12/18 Specimen Type: SERUM No comment entered. Ordering Provider: SHAYE ESPAÑA Report Released Date/Time: December 07, 2022 09:38 AM Reporting Lab: [facility] [address] [facility] [address] Performing Lab: [facility] [address] [address] [place] BASIC METABOLIC PANEL (fasting) CHLORIDE [MOLES/VOLU ME] IN SERUM OR PLASMA 105 mmol/L 100 - 110 05/13 /2024 Specimen Type: SERUM No comment entered. Ordering Provider: SHAYE ESPAÑA Report Released Date/Time: December 07, 2022 09:38 AM Reporting Lab: [facility] [address] Performing Lab: [facility] [address] [place] BASIC METABOLIC PANEL (fasting) CARBON DIOXIDE, TOTAL [MOLES/VOLU ME] IN SERUM OR PLASMA 27 meq/L 20 - 30 12/18 Specimen Type: SERUM No comment entered. Ordering Provider: SHAYE ESPAÑA Report Released Date/Time: December 07, 2022 09:38 AM Reporting Lab: [facility] [address] [address] Performing Lab: [facility] [address] [address] [place] BASIC METABOLIC PANEL (fasting) CREATININE [MASS/VOLUM E] IN SERUM OR PLASMA 1.34 mg/dL 0.50 - 1.40 12/18 Specimen Type: SERUM No comment entered. Ordering Provider: SHAYE ESPAÑA Report Released Date/Time: December 07, 2022 09:38 AM Reporting Lab: [facility] [address] Performing Lab: [facility] [address] [address] [place] BASIC METABOLIC PANEL (fasting) GLOMERULAR FILTRATION RATE/1.73 SQ M.PREDICTED [VOLUME RATE/AREA] IN SERUM, PLASMA OR BLOOD BY CREATININE- BASED FORMULA (CKD-EPI 2020) 56 mL/min 60 12/18 L Specimen Type: SERUM No comment entered. Ordering Provider: SHAYE ESPAÑA Report Released Date/Time: December 07, 2022 09:38 AM Reporting Lab: [facility] [address] Performing Lab: [facility] [address] [place] LIVER FUNCTION PROTEIN [MASS/VOLUM E] IN SERUM OR PLASMA 6.8 g/dL 6.0 - 8.3 12/18 Specimen Type: SERUM No comment entered. Ordering Provider: SHAYE ESPAÑA Report Released Date/Time: December 07, 2022 09:38 AM Reporting Lab: [facility] [place] [facility] [address] [facility] [address] Performing Lab: [facility] [place] [address] [address] [place] LIVER FUNCTION ALBUMIN [MASS/VOLUM E] IN SERUM OR PLASMA 3.2 g/dL 3.5 - 5.0 12/18 L Specimen Type: SERUM No comment entered. Ordering Provider: SHAYE ESPAÑA Report Released Date/Time: December 07, 2022 09:38 AM Reporting Lab: [facility] [address] [address] Performing Lab: [facility] [address] [place] LIVER FUNCTION ALKALINE PHOSPHATASE [ENZYMATIC ACTIVITY/VO LUME] IN SERUM OR PLASMA 42 U/L 40 - 150 12/18 Specimen Type: SERUM No comment entered. Ordering Provider: SHAYE ESPAÑA Report Released Date/Time: December 07, 2022 09:38 AM Reporting Lab: [facility] [address] Performing Lab: [facility] [address] [place] LIVER FUNCTION ASPARTATE AMINOTRANSF ERASE [ENZYMATIC ACTIVITY/VO LUME] IN SERUM OR PLASMA 29 U/L 5 - 34 12/18 Specimen Type: SERUM No comment entered. Ordering Provider: SHAYE ESPAÑA Report Released Date/Time: December 07, 2022 09:38 AM Reporting Lab: [facility] [address] Performing Lab: [facility] [address] [place] LIVER FUNCTION ALANINE AMINOTRANSF ERASE [ENZYMATIC ACTIVITY/VO LUME] IN SERUM OR PLASMA 56 U/L 12/18 H Specimen Type: SERUM No comment entered. Ordering Provider: SHAYE ESPAÑA Report Released Date/Time: December 07, 2022 09:38 AM Reporting Lab: [facility] [address] [address] Performing Lab: [address] [address] [place] LIVER FUNCTION BILIRUBIN.T OTAL [MASS/VOLUM E] IN SERUM OR PLASMA 0.4 mg/dL 0.2 - 1.2 12/18 Specimen Type: SERUM No comment entered. Ordering Provider: SHAYE ESPAÑA Report Released Date/Time: December 07, 2022 09:38 AM Reporting Lab: [facility] [address] [address] Performing Lab: [address] [address] [place] HEMOGLOBI N A1C PANEL HEMOGLOBIN A1C/HEMOGLO BIN.TOTAL IN BLOOD BY HPLC 5.6 4.0 - 5.6 12/18 Specimen Type: BLOOD Comment: Values obtained from A1C measurement s can vary. For atypical A1C assays, a reported value of 7.0 could actually be between 6.72 and 7.28 if measured by a reference method. A reported value of 9.0 could actually be between 8.73 and 9.27. Ref: http://www. ngsp.org/[place] Pdata.asp Ordering Provider: SHAYE ESPAÑA Report Released Date/Time: December 07, 2022 09:38 AM Reporting Lab: [address] [address] Performing Lab: [address] [address] [place] CBC AND DIFF (AUTO) LEUKOCYTES [#/VOLUME] IN BLOOD BY AUTOMATED COUNT 10.03 10*3/u L 4.50 - 11.00 12/18 Specimen Type: BLOOD No comment entered. Ordering Provider: SHAYE ESPAÑA Report Released Date/Time: December 07, 2022 09:38 AM Reporting Lab: [facility] [place] [facility] [address] [facility] [address] Performing Lab: [facility] [place] [facility] [address] [facility] [address] [place] CBC AND DIFF (AUTO) ERYTHROCYTE S [#/VOLUME] IN BLOOD BY AUTOMATED COUNT 5.33 10*6/u L 4.23 - 5.66 12/18 Specimen Type: BLOOD No comment entered. Ordering Provider: SHAYE ESPAÑA Report Released Date/Time: December 07, 2022 09:38 AM Reporting Lab: [facility] [place] [facility] [address] [facility] [address] Performing Lab: [facility] [address] [address] [place] CBC AND DIFF (AUTO) HEMOGLOBIN [MASS/VOLUM E] IN BLOOD 16.1 g/dL 12.8 - 17 12/18 Specimen Type: BLOOD No comment entered. Ordering Provider: SHAYE ESPAÑA S Report Released Date/Time: December 07, 2022 09:38 AM Reporting Lab: [facility] [address] [facility] [address] Performing Lab: [facility] [place] [address] [address] [place] CBC AND DIFF (AUTO) HEMATOCRIT [VOLUME FRACTION] OF BLOOD BY AUTOMATED COUNT 48.3 39.2 - 50.4 12/18 Specimen Type: BLOOD No comment entered. Ordering Provider: SHAYE ESPAÑA Report Released Date/Time: December 07, 2022 09:38 AM Reporting Lab: [facility] [place] [facility] [address] [facility] [address] Performing Lab: [facility] [address] [address] [place] CBC AND DIFF (AUTO) MCV [ENTITIC VOLUME] BY AUTOMATED COUNT 90.6 fL 82 - 99 12/18 Specimen Type: BLOOD No comment entered. Ordering Provider: SHAYE ESPAÑA Report Released Date/Time: December 07, 2022 09:38 AM Reporting Lab: [facility] [place] [facility] [address] [facility] [address] Performing Lab: [facility] [place] [facility] [address] [facility] [address] [place] CBC AND DIFF (AUTO) MCHC [MASS/VOLUM E] BY AUTOMATED COUNT 33.3 g/dL 30.8 - 35.1 12/18 Specimen Type: BLOOD No comment entered. Ordering Provider: SHAYE ESPAÑA Report Released Date/Time: December 07, 2022 09:38 AM Reporting Lab: [facility] [place] [facility] [address] [facility] [address] Performing Lab: [facility] [place] [address] [address] [place] CBC AND DIFF (AUTO) PLATELETS [#/VOLUME] IN BLOOD BY AUTOMATED COUNT 285 10*3/u L 140 - 360 12/18 Specimen Type: BLOOD No comment entered. Ordering Provider: SHAYE ESPAÑA Report Released Date/Time: December 07, 2022 09:38 AM Reporting Lab: [facility] [place] [facility] [address] [facility] [address] Performing Lab: [facility] [place] [facility] [address] [facility] [address] [place] CBC AND DIFF (AUTO) ERYTHROCYTE DISTRIBUTIO N WIDTH [RATIO] BY AUTOMATED COUNT 14.2 12.0 - 16.0 12/18 Specimen Type: BLOOD No comment entered. Ordering Provider: SHAYE ESPAÑA Report Released Date/Time: December 07, 2022 09:38 AM Reporting Lab: [facility] [place] [facility] [address] [facility] [address] Performing Lab: [facility] [place] [address] [address] [place] CBC AND DIFF (AUTO) MONOCYTES [#/VOLUME] IN BLOOD BY AUTOMATED COUNT 1.12 10*3/u L 0.30 - 1.10 12/18 H Specimen Type: BLOOD No comment entered. Ordering Provider: SHAYE ESPAÑA Report Released Date/Time: December 07, 2022 09:38 AM Reporting Lab: [facility] [place] [facility] [address] [facility] [address] Performing Lab: [facility] [place] [facility] [address] [facility] [address] [place] CBC AND DIFF (AUTO) MCH [ENTITIC MASS] BY AUTOMATED COUNT 30.2 pg 26.2 - 32.6 12/18 Specimen Type: BLOOD No comment entered. Ordering Provider: SHAYE ESPAÑA Report Released Date/Time: December 07, 2022 09:38 AM Reporting Lab: [facility] [place] [facility] [address] [facility] [address] Performing Lab: [facility] [place] [address] [address] [place] CBC AND DIFF (AUTO) NEUTROPHILS /100 LEUKOCYTES IN BLOOD BY AUTOMATED COUNT 75.2 43.7 - 75.8 12/18 Specimen Type: BLOOD No comment entered. Ordering Provider: SHAYE ESPAÑA Report Released Date/Time: December 07, 2022 09:38 AM Reporting Lab: [facility] [place] [address] [address] Performing Lab: [facility] [place] [address] [address] [place] CBC AND DIFF (AUTO) LYMPHOCYTES /100 LEUKOCYTES IN BLOOD BY AUTOMATED COUNT 11.1 14.0 - 42.3 12/18 L Specimen Type: BLOOD No comment entered. Ordering Provider: SHAYE ESPAÑA Report Released Date/Time: December 07, 2022 09:38 AM Reporting Lab: [facility] [place] [address] [address] Performing Lab: [facility] [place] [address] [address] [place] CBC AND DIFF (AUTO) MONOCYTES/1 00 LEUKOCYTES IN BLOOD BY AUTOMATED COUNT 11.2 5.1 - 13.7 12/18 Specimen Type: BLOOD No comment entered. Ordering Provider: SHAYE ESPAÑA Report Released Date/Time: December 07, 2022 09:38 AM Reporting Lab: [facility] [place] [address] [address] Performing Lab: [facility] [place] [facility] [address] [facility] [address] [place] CBC AND DIFF (AUTO) EOSINOPHILS /100 LEUKOCYTES IN BLOOD BY AUTOMATED COUNT 1.4 0.4 - 6.8 12/18 Specimen Type: BLOOD No comment entered. Ordering Provider: SHAYE ESPAÑA Report Released Date/Time: December 07, 2022 09:38 AM Reporting Lab: [facility] [place] [address] [address] Performing Lab: [facility] [place] [address] [address] [place] CBC AND DIFF (AUTO) BASOPHILS/1 00 LEUKOCYTES IN BLOOD BY AUTOMATED COUNT 0.3 0.1 - 2.0 12/18 Specimen Type: BLOOD No comment entered. Ordering Provider: SHAYE ESPAÑA Report Released Date/Time: December 07, 2022 09:38 AM Reporting Lab: [facility] [place] [address] [address] Performing Lab: [facility] [place] [address] [address] [place] CBC AND DIFF (AUTO) NEUTROPHILS [#/VOLUME] IN BLOOD BY AUTOMATED COUNT 7.55 10*3/u L 2.20 - 7.60 12/18 Specimen Type: BLOOD No comment entered. Ordering Provider: SHAYE ESPAÑA Report Released Date/Time: December 07, 2022 09:38 AM Reporting Lab: [facility] [address] [address] Performing Lab: [facility] [address] [address] [place] CBC AND DIFF (AUTO) LYMPHOCYTES [#/VOLUME] IN BLOOD BY AUTOMATED COUNT 1.11 10*3/u L 1.00 - 3.20 12/18 Specimen Type: BLOOD No comment entered. Ordering Provider: SHAYE ESPAÑA Report Released Date/Time: December 07, 2022 09:38 AM Reporting Lab: [facility] [address] [address] Performing Lab: [facility] [address] [facility] [address] [place] CBC AND DIFF (AUTO) EOSINOPHILS [#/VOLUME] IN BLOOD BY AUTOMATED COUNT 0.14 10*3/u L 0.03 - 0.44 12/18 Specimen Type: BLOOD No comment entered. Ordering Provider: SHAYE ESPAÑA Report Released Date/Time: December 07, 2022 09:38 AM Reporting Lab: [facility] [address] [address] Performing Lab: [facility] [address] [place] CBC AND DIFF (AUTO) BASOPHILS [#/VOLUME] IN BLOOD BY AUTOMATED COUNT 0.03 10*3/u L 0.01 - 0.13 12/18 Specimen Type: BLOOD No comment entered. Ordering Provider: SHAYE ESPAÑA Report Released Date/Time: December 07, 2022 09:38 AM Reporting Lab[facility] [address] [address] Per[facility]: [facility] [address] [address] [place] CBC AND DIFF (AUTO) IMMATURE GRANULOCYTE S/100 LEUKOCYTES IN BLOOD BY AUTOMATED COUNT 0.8 0.0 - 0.7 12/18 H Specimen Type: BLOOD No comment entered. Ordering Provider: SHAYE ESPAÑA Report Released Date/Time: December 07, 2022 09:38 AM Reporting Lab: [facility] [address] [address] Performing Lab: [facility] [address] [address] [place] CBC AND DIFF (AUTO) IMMATURE GRANULOCYTE S [#/VOLUME] IN BLOOD 0.08 10*3/u L 0.00 - 0.06 12/18 H Specimen Type: BLOOD No comment entered. Ordering Provider: SHAYE ESPAÑA Report Released Date/Time: December 07, 2022 09:38 AM Reporting Lab: [facility] [facility] [address] [facility] [address] Performing Lab: [facility] [address] [facility] [address] [facility] THYROTROPIN [UNITS/VOLU ME] IN SERUM OR PLASMA 1.22 u[IU]/ mL 0.35 - 5.00 12/18 Specimen Type: SERUM No comment entered. Ordering Provider: SHAYE ESPAÑA Report Released Date/Time: December 07, 2022 09:38 AM Reporting Lab: [facility] [address] [facility] [address] Performing Lab: [facility] [address] [facility] [address] [facility] Vital Signs Combined list of inpatient and outpatient Vital Signs from Department of Defense and Veterans Affairs, ranging from 12 months to all on record, depending upon the facility. Vital Sign Value Date Comments Source SYSTOLIC BLOOD PRESSURE 138 12/25/19 25 10:25:26 [facility] DIASTOLIC BLOOD PRESSURE 82 025 10:25:26 [facility] PULSE OXIMETRY 95 12/24/2024 10:25:26 [facility] WEIGHT 240.4 12/24/2024 10:25:26 [facility] BMI 33 kg/m2 12/24/2024 10:25:26 [facility] PAIN 0 12/24/2024 10:25:26 [facility] HEIGHT 72 12/24/2024 10:25:26 [facility] TEMPERATURE 98.1 12/24/2024 10:25:26 [facility] PULSE 45 12/24/2024 10:25:26 [facility] RESPIRATION 16 12/24/2024 10:25:26 [facility] Encounters Combined list of: 1) Encounters from Department of Veterans Affairs facilities going backup to the last 18 months, not all VA inpatient encounters are included; 2) Encounters from the Department of Defense facilities going backup to 280 months. Location Location Details Encounter Type Encounter Number Reason For Visit Attending Provider ADM Date DC Date Status Disposition Source [facility] Outpatient Encounter [id number] 09/22 [facility] [place] OFFICE O/P EST HI 40 MIN [id number] Diagnos is: ICD-10- CM R73.01 Impaire d fasting glucose TRACEE VILLEGAS 12/22 [place] [facility] OFF/OP CNSLTJ NEW/EST MOD 40 [id number] Diagnos is: ICD-10- CM K62.0 Anal polyp GO,NINA S 12/29 [facility] COMPRE OPH EXAM EST PT 1/> [id number] Diagnos is: ICD-10- CM H40.013 Open angle with borderl ine finding s, low risk, bilater al CHRISTOPHER COUCH 01/18 [facility] FIT SPECTACLES MONOFOCAL [id number] Diagnos is: ICD-10- CM Z46.0 Encount er for fit/adj st of spectac les and contact lenses CHRISTOPHER COUCH 01/19 [facility] Outpatient Encounter [id number] 02/27 [facility] Out[facility] Encounter [id number] 04/04 [facility] Encounter [id number] 04/23 [facility] Outpatient [facility]counter [id number] 05/02 [facility] Outpatient Encounter [id number] 05/28 [facility] OFFICE O/P EST MOD 30 MIN [id number] Diagnos is: ICD-10- CM L28.1 Prurigo nodular is TANIA WAGNER 08/28 [facility] [place] OFFICE O/P EST LOW 20 MIN [id number] Diagnos is: ICD-10- CM E78.2 Mixed hyperli pidemia ROMANA SMITH 12/24 [facility] [place] [facility] COMPRE OPH EXAM EST PT 1/> [id number] Diagnos is: ICD-10- CM H40.013 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 Social History Type Response Date Comment Source Tobacco smoking status [facility] VA-TOBACCO USE FORMER CIGARETTES 12/24/2024 [place] History of tobacco use VA-TOBACCO NEVER USED OTHER TYPE 12/24/2024 [place] History of tobacco use VA-TOBACCO FORMER USER 12/23/2023 [place] History of tobacco use VA-TOBACCO USER SOME DAYS 04/19/2022 [place] History of tobacco use VA-TOBACCO USE DECLINED TO ANSWER 12/07/2021 [place] History of tobacco use VA-TOBACCO FORMER USER 07/07/2020 [place] History of tobacco use VA-TOBACCO FORMER USER 03/22/2019 [place] History of tobacco use VA-TOBACCO USER EVERY DAY 05/26/2018 [place] History of tobacco use CURRENT SMOKER 08/29/2013 pack a day. Has Chantix at home. [facility] History of tobacco use CURRENT SMOKER 09/23/2009 [facility] This section is an empty social history section. [facility] Plan of Care List of future care activities from Department of Veterans Affairs facilities. Additional future care activities may be listed in the Assessment and Plan section. Date/Time Care Activity Care Activity Detail Facili ty 03/05/2025 AMBULATORY - MEDICINE AMBULATORY - MEDICI NE [facility]
--- OUTSIDE RECORDS SUMMARY | 2025-02-07 12:33 | XMS_ITS | Data Portability ---
Author Organization [place] [facility], Allergy Address [address] [address] Care Team Providers Care Zoning Engineer Name Role Phone RADHAMES BEAL Primary Care Provider Assessment No assessment recorded. Plan of Treatment Reminders Order Date Submit Date Provider Last Modified By Organization Details Last Modified Time Details Appointments None recorded. Lab None recorded. Referral None recorded. Procedures allergy testing, skin prick (PROC) 2023 024 [email or web address] Not available 4 10:50:32 intradermal allergy skin testing (PROC) 2023 024 [email or web address] Not available 4 10:50:32 pulmonary function test procedure (PROC) 2023 024 [email or web address] Not available 4 10:50:32 pulse oximetry (PROC) 2023 024 [email or web address] Not available 4 10:50:32 Surgeries None recorded. Imaging None recorded. Medication Orders None recorded. Patient TargetsNo targets recorded. Patient Instructions Encounter Date Encounter Id Patient Instructions Last Modified By Organization Details Last Modified Time 01/30/2024 [id number] Nursing Documentation for Allergy Testing: Ordering Provider Dr. Mcgarry Weight:lbs: kg: PFT Yes With Bronchodilator tiffany Zendejas approval needed to proceed with allergy testing? Yes Dr. Galdamez ok'd testing YesHistory of Asthma:No Asthma Meds: Last used: Asthma exacerbated by: Chance that : N/A Fear of needles: No Regular medications reviewed in Computer: Yes Medication allergies: Reviewed Antihistamine use: No Medications used: Food Allergies: none Any foods make your mouth feeling itchy: No If yes: History of severe reaction where had to go to ER? No If yes details: Type of heat in home: Forced Air Pets: Yes If yes: cat /dog Smoker: Former If former smoker-how much 20 / per day day for how long 50 years When quit 2 years ago years ago Smoking now-how much 0 /day for how long Occupation/Social History: retired Symptoms having: If other: none Frequency Spirometry Contraindications: Heart attack in the last 3 months: No Major surgery in last 3 months: No Detached retina(serious eye issues) in last 2 months: No Hospitilization in last month: No Proceed with PFT Yes approval needed: Yes Nursing Notes: Pt tolerated test well Yes Benadryl cream to test sites No Patient became syncopal-placed in supine position No Large reactions to MQT, reschedule IDT for a different date No Other: Written by: Andressa Vance [email or web address] Not available 01/30/2024 14:30:14 Reason for Referral None Reported. Results Created Date Observation Date Name Description Value Unit Range Abnormal Flag Note LastModifiedBy Organization Detail LastModifiedTime 03/28/20 24 12/14/2023 imagi ng/di agnos tic resul t No observ ation record ed. [email or web address] Not Available 12:10:31 03/28/20 24 06/16/2021 imagi ng/di agnos tic resul t No observ ation record ed. [email or web address] Not Available 12:10:54 03/28/2006/16/2021 imagi ng/di agnos tic resul t No observ ation record ed. [email or web address] Not Available 12:10:57 03/28/2006/16/2021 audio gram No observ ation record ed. [email or web address] Not Available 12:11:26 Result Notes None recorded. 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; Note: Date Diagnosed : 06/16/2021 3:42 PM (D10.5) Not Available [facility] 4 03:03:18 Chronic sinusitis 61129599 Active 2022 Other chronic sinusitis ; Note: Date Diagnosed : 3 9:02 AM (J32.8) Not Available [facility] 4 03:03:17 Allergic rhinitis 88688921 Active 2022 Allergic rhinitis, unspecifi ed; Note: Date Diagnosed : 3 8:56 AM (J30.9) Not Available [facility] 4 03:03:17 Deviated nasal septum 828808242 Active 2022 Deviated nasal septum; Note: Date Diagnosed : 3 9:02 AM (J34.2) Not Available [facility] 4 03:03:18 Bilateral tinnitus 61215384296 02 Active 2017 Tinnitus, bilateral ; Note: Date Diagnosed : 04/26/2018 11:21 AM (H93.13) Not Available [facility] 4 03:03:18 Nasal congestio n 58347965 Active 2022 Nasal congestio n; Note: Date Diagnosed : 3 8:56 AM (R09.81) Not Available [facility] 4 03:03:16 Seasonal allergic rhinitis 952808429 Active 2023 JANI MCGARRY MD [address] [facility],[place] [address], [place], [address] , [facility] 4 14:52:31 Non-aller gic rhinitis 49832848763 1 Active 2023 JANI MCGARRY MD [address] [place] [address],[facility] [address], [place], [address] , [facility] - [facility] 4 14:52:31 Hypertrop hy of nasal turbinate s 72745808 Active 2023 Hypertrop hy of nasal turbinate s; Note: Date Diagnosed : 12/14/2023 3:53 PM (J34.3) Not Available [facility] 4 03:03:17 Follow-up visit Active 2023 Medical surveilla nce following completed treatment ; Note: Date Diagnosed : 12/19/2023 12:17 PM (Z09) Not Available [facility] 4 03:03:17 Problem Notes None recorded. Procedures Surgical History Date Name Laterality Status Provider Name and Address Organization Details Recorded Time 4 Allergy Testing-Full completed TAWNY MICHEL [address] [facility],[place] [address], [place], [address], [facility] 01/30/2024 14:27:50 4 NasalEndosco py_DP completed JANI MCGARRY MD [address] [place] [address],[address], [address], [facility] 01/23/2024 14:52:20 Imaging Results None recorded. Procedure Notes None recorded. Medical Equipment None Reported. Medications Name Sig Start Date Stop Date Status Note LastModified by Organization Details LastModified Time aspirin 81 mg tablet,ashanti yed release 2017 active Medication ID: [id number] Bra nd Name: aspirin Se nd Method: E-Prescrib ed Subs Allowed: subs OK Medicat ionGeneric Name: aspirin Not Available Not Available Not Available triamcinolo ne acetonide 0.1 % topical cream 01/29 completed Medication ID: [id number] Dur ation Value: 8 Brand Name: triamcinol one acetonide Send Method: E-Prescrib ed Subs Allowed: subs OK Medicat ionGeneric Name: triamcinol one acetonide Medication ID: [id number] Dur ation Value: 8 Brand Name: triamcinol one acetonide Send Method: E-Prescrib ed Subs Allowed: subs OK Medicat ionGeneric Name: triamcinol one acetonide Not Available Not Available Not Available warfarin 5 mg tablet 2017 active Medication ID: [id number] Dur ation Value: 30 Brand Name: warfarin S end Method: E-Prescrib ed Subs Allowed: subs OK Medicat ionGeneric Name: warfarin Not Available Not Available Not Available atorvastati n active Not Available Not Available Not Available Vitamin D2 active Not Available Not Av ailable Not Available Anoro Ellipta active Not Available Not Available Not Available Vitals Date Recorded Body height Provider Name an d Address Organization Details Last Updated DateTime 01/23/2024 182.88 cm Mary Levine [facility] 01/23/2024 14:33:57 Date Recorded Body height Oxygen saturation Oxygen saturation in Arterial blood by Pulse oximetry Heart rate Body mass index (BMI) Body weight Provider Name and Address Organization Details Last Updated DateTime 182.88 cm 96 % 96 % 67 /min 31.2 kg/m2 411098. 25 g TAWNY MICHEL [address] [place] [address], [address] [place] [address] [facility] 13:24:25 Date Recorded Body height Body mass index (BMI) Body weight Provider Name and Address Organization Details Last Updated DateTime 02/14/2024 182.88 cm 31.2 kg/m2 591912.25 g Mary Levine [facility] 02/14/2024 13:06:18 Social History None recorded. Functional Status None recorded. Mental Status None recorded. Family History Nothing Reported. Medical History No medical history recorded. Past Encounters Encounter ID Performer Location Encounter Start Date Encounter Closed Date Diagnosis/Indication Diagnosis SNOMED-CT Code Diagnosis ICD10 Code Diagnosis Note [id number] JANI MCGARRY MD [facility] [address] [address] 01/23/2024 14:17:17 01/23/2024 14:54:31 Allergic rhinitis 12870120 J30.9 Exam and history are consistent with allergic rhinitis which may explain congestion which remains. We will obtain allergy testing to clarify the extent of allergy with f/u to review. Nasal congestion 2002743 0 R09.81 Notes improvemen t after surgery but still congested. May have an allergy component. Non-allergic rhinitis 31 21139924 01 J31.0 Seasonal a llergic rhinitis 267435549 J30.2 [id number] TAWNY MICHEL [facility] [address],[place] [address] [place] [address] 01/30/2024 13:09:00 01/30/2024 16:16:31 Allergic rhinitis 01001955 J30.9 [id number] JANI MCGARRY MD [facility] [address] [facility] [place] [address] 02/14/2024 12:56:54 02/14/2024 13:23:17 Allergic rhinitis 30618685 J30.9 Allergy testing showed moderate allergy to mold and dust. I discussed immunother apy but we agreed to defer. I discussed dust mitigation . He can use allergy treatments as needed. He will f/u as needed. Health Concerns Section Related Observation LastModified by Organization Detai ls LastModified Time None Recorded Concern Status LastModified by Organization Details LastModified Time None Recorded Advance Directives Directive None Recorded Payers Insurance Date Sequence Insurance Name Policy Number Policy Pettit Covered Member ID Pettit Member ID Guarantor Name 02/11/2024 2 FOR LIFE () Jhonathan Rodgersjaun [id number] Jhonathan Rodgersjuan 02/11/2024 1 [place]ICARE [place]: [facility] [employer] Jhonathan Kevin [id number] Jhonathan Kevin Notes Date Note Type Note Provider Name and Address Organization Details Recorded Time 01/23/2024 text/html He had a septoplasty a month ago. Notes improved breathing overall but still mouth breathes and feels congested. JANI MCGARRY MD [address] [place] [address], [address], [place] [facility] 01/23/2024 14:53:17 02/14/2024 text/html Hx of septoplast y and turbinate reduction 12/14/23. Still has congestion. Allergy testing was performed and showed moderate allergy to dust and mold. He says he is breathing much better through his nose than before but still has congestion. JANI MCGARRY MD [address] [place] [address],[place] [address], [place], [address], [facility] 02/14/2024 13:22:23
--- OUTSIDE RECORDS SUMMARY | 2025-02-07 12:34 | XMS_ITS | Patient Health Record ---
Author Organization [facility] Address [address] [place] [address] Care Team Providers Care Vacuum Closing Machine Operator Name Role Phone Adonis Hutton Jr [phone] Reason For Referral No Information Plan Of Treatment No Information
--- OUTSIDE RECORDS SUMMARY | 2025-02-07 12:34 | XMS_ITS | Clinical Summary ---
Author Organization [facility] Address [address] [place], [place] [id number] Care Team Providers Care Spraying Machine Operator Name Role Phone Tere Singleton MD Primary Care Provider Allergies No known active allergies Medications Medication Sig Dispensed Refills Start Date End Date Status aspirin EC 81 MG tablet Take 81 mg by mouth daily. 0 Active Umeclidinium-Vilantero l (ANORO ELLIPTA IN) Inhale into the lungs. 0 Active atorvastatin (LIPITOR) tablet 80 mg Take 80 mg by mouth daily. 0 Active fenofibrate (TRICOR) tablet 145 mg Take 145 mg by mouth daily. 0 Active warfarin (COUMADIN) 5 MG tablet Take 5 mg by mouth daily. 0 Active Active Problems Problem Noted Date Diagnosed Date Trigger finger, left middle finger 11/01/2018 Social History Tobacco Use Types Packs/Day Years Used Date Smoking Tobacco: Former Smokeless Tobacco: Never Alcohol Use Standard Drinks/Week Comments Yes 0 (1 standard drink = 0.6 oz pur e alcohol) 1 per week Sex and Gender Information Value Date Recorded Sex Assigned at Not on file Gender Identity Not on file Sexual Orientation Not on file Last Filed Vital Signs Vital Sign Reading Time Taken Comments Blood Pressure - - Pulse - - Temperature - - Respiratory Rate - - Oxygen Saturation - - Inhaled Oxygen Concentration - - Weight 104.3 kg (230 lb) 11/01/2018 9:26 AM EDT Height 182.9 cm (6') 11/01/2018 9:26 AM EDT Body Mass Index 31.19 11/01/2018 9:26 AM EDT Plan of Treatment Health Maintenance Due Date Last Done Comments Hepatitis C Screening 1950 COVID-19 Vaccine (#1) 06[birth year]17/1951 Depression Screening 1963 Preventative Health Evaluation 12/15/1969 Colon Cancer Screening (Colonoscopy) 12/15/1996 Shingrix-Zoster Vaccine (1 of 2) 12/15/2001 Fall Risk Assessment 12/15/2016 DTap / Tdap / Td (2 - Td or Tdap) 08/18/2022 08/18/2012 Influenza Vaccine (Season Ended) 2025 05/23/2017, 05/30/2015, 08/28/2014, Additional history exists RSV Adult > 60+ Yrs or (1 - 1-dose 75+ series) 12/15/2026 Pneumococcal Vaccine Completed 09/25/2018, 05/23/20 17 Hepatitis B Vaccines Aged Out No long er eligible based on patient's age to complete this topic RSV Ped < 20 months Aged Out No longe r eligible based on patient's age to complete this topic Care Teams Spraying Machine Operator Relationship Specialty Start Date End Date Tere Singleton MD PCP - General Internal Medicine 10/06/18
== END 2025-02-07 13:30 | disposition home or self-care (01) ==
PROVIDERS: PCP Internal Medicine; Visit Provider Physician Assistant Medical
DX: M54.50 Low back pain, unspecified (principal)

== ENCOUNTER → 2025-02-07 12:02 | Outpatient (BNVA) | payer MEDICARE, OTHER, SELFPAY | PROVIDERS: PCP Internal Medicine; Visit Provider Physician Assistant Medical | DX: M54.50 Low back pain, unspecified (principal) | CPT/HCPCS: 99212 ==

== ENCOUNTER 2025-05-28 13:00 | Outpatient (AMB) | payer MEDICARE, OTHER, SELFPAY ==
--- NOTE | 2025-05-28 13:25 | A.OFFVIS_ITS ---
Intake Visit Reasons: ENP-Cognitive Impairment, Forgetfulness Allergies bee pollen (BEE STINGS) Allergy (Mild, Verified 02/07/25 12:23) HIVES HPI Comments Details: The patient is a 74-year-old male presenting with forgetfulness. His memory issues are significant enough to interfere with daily activities, as evidenced by frequent forgetting of appointments and reminders. His reports that the condition is severe, necessitating day-of reminders for planned activities. An MRI performed previously indicated no abnormalities, though specific details or follow-up were not recalled by the patient. Past medical history is notable for Chronic Obstructive Pulmonary Disease (COPD) and a history of a right-leg Deep Vein Thrombosis (DVT), both of which seem stable as per the current consultation. The patient denies any significant alcohol intake, affirming minimal consumption, and reports no history of diabetes or hypertension. [facility] Medical History (Updated 05/28/25 @ 13:47 by Shyann Vernon MD) Tobacco use disorder Mixed hyperlipidemia Arterial thrombosis Colon polyp Coronary artery disease involving lower brule heart without angina pectoris Deviated nasal septum Wheezing Asthma-COPD overlap syndrome Pulmonary nodules Stage 4 very severe COPD by GOLD classification Mild persistent asthma in adult without complication Pulmonary emphysema Lumbar stenosis with neurogenic claudication Sinus bradycardia Encounter for screening for malignant neoplasm of lung FHx: premature coronary heart disease History of actinic keratoses Polycythemia Benign prostatic hyperplasia without lower urinary tract symptoms Hx of blood clots Wears dentures Cataract History of DVT (deep vein thrombosis) Pre-diabetes PAD (peripheral artery disease) Elevated cholesterol COPD (chronic obstructive pulmonary disease) Seasonal allergies Arterial embolism and thrombosis of lower extremity Surgical History (Updated 05/24/25 @ 09:48 by TAWNY Jeffery) History of embolectomy DVT (deep venous thrombosis) Hx of colonoscopy Family History (Updated 05/24/25 @ 09:50 by TAWNY Jeffery) Mother Hx of CABG Father COPD (chronic obstructive pulmonary disease) Brother Heart attack Maternal Aunt Breast cancer Social History Household Members: Spouse Housing: House Are you a primary aged or disabled care worker to a significant other at home: No Do you presently have visiting nurse or other home services: No Alcohol intake: current Alcohol intake frequency: holidays/special occasions only Comment: aware of trip hazard Patient Tobacco Use Status: Former Tobacco user Tobacco use type: Cigarette Substance Use Type: Marijuana Review of Systems Narrative - Neurological: Reports forgetfulness. - Respiratory: Reports history of Chronic Obstructive Pulmonary Disease (COPD). - Cardiovascular: Denies hypertension. - Musculoskeletal: Denies current deep vein thrombosis symptoms. - Endocrine: Denies diabetes. - Psychiatric: Reports memory issues affecting daily activities. Physical Exam Neuro Other: Mental Status: Alert and oriented to person, place, and time. Normal attention. Normal spontaneous speech, fluency, and comprehension. MOCA 30. MMS 30. Affect is appropriate. Cranial Nerves: CN II: Visual harry full to confrontation, visual acuity intact. CN III, IV, : Pupils equal, round, reactive to light and accommodation. Extraocular movements are normal. CN V: Facial sensation is normal. CN VII: Facial movements symmetrical. CN VIII: Hearing intact to bedside conversation is normal. CN IX, X: Palate elevates symmetrically. CN XI: Shoulder shrug and head turn symmetrical. CN XII: Tongue midline without atrophy or fasciculations. Motor: Deep tendon reflexes are 1+. Extrapyramidal: Full facial expressions and blinking. No rigidity. Movements are appropriate with no tremor or abnormality. Speech: Normal; no dysarthria or tremor. Assessment & Plan Assessment & Plan (1) MCI (mild cognitive impairment): Comment: MRI brain WO at [facility] in February 2025: Minimal MVD Code(s): G31.84 - Mild cognitive impairment of uncertain or unknown etiology Category: Medical (2) BRISA (obstructive sleep apnea): Code(s): G47.33 - Obstructive sleep apnea (adult) (pediatric) Category: Medical Plan Impression: a: Mild cognitive impairment b: Possible BRISA Rec: a: B12/folate/TSH: if ok, may get PET scan b: Home polysomnogram Orders: Orders Vitamin B12 and Folate Today G31.84 - Mild cognitive impairment of uncertain or unknown etiology Thyroid Stimulating Hormone Today G31.84 - Mild cognitive impairment of uncertain or unknown etiology Lyme IgG/IgM w/reflex to WB Today G31.84 - Mild cognitive impairment of uncertain or unknown etiology Syphilis Screen Today G31.84 - Mild cognitive impairment of uncertain or unknown etiology RT home sleep study Today G47.33 - Obstructive sleep apnea (adult) (pediatric) Coding Level of Care Code New Pt Level 5 (06394) Diagnoses MCI (mild cognitive impairment) G31.84 BRISA (obstructive sleep apnea) G47.33
--- OUTSIDE RECORDS SUMMARY | 2025-05-28 16:40 | XMS_ITS | Clinical Summary ---
Author Organization [facility] Address [address] [place], [place] [id number] Care Team Providers Care Shoelace Tipping Machine Operator Name Role Phone Tere Singleton MD Primary Care Provider [phone] Allergies No known active allergies Medications Medication [...] Td or Tdap) 08/18/2022 08/18/2012 Influenza Vaccine (#1) 2025 7, 05/30/2015, 08/28/2014, Additional history exists RSV Adult > 60+ Yrs or (1 - 1-dose 75+ series) 12/15/2026 Pneumococcal Vaccine Completed 09/25/2018, 05/23/20 17 Hepatitis B Vaccines Aged Out No long er eligible based on patient's age to complete this topic RSV Ped < 20 months Aged Out No longe r eligible based on patient's age to complete this topic Care Teams Shoelace Tipping Machine Operator Relationship Specialty Start Date End Date Tere Singleton MD PCP - General Internal Medicine 10/06/18
--- OUTSIDE RECORDS SUMMARY | 2025-05-28 16:40 | XMS_ITS | Data Portability ---
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 Role Phone RADHAMES BEAL Primary Care [...] date No Other: Written by: Andressa Vance [email or web address] Not available 01/30/2024 14:30:14 Reason for Referral [...] Sensorine ural hearing loss of bilateral ears 123669323 Active 2017 Sensorine ural hearing loss, bilateral ; Note: Date Diagnosed : 04/26/2018 11:21 AM (H90.3) Not Available [facility] 4 03:03:16 Bilateral tinnitus 47916247113 02 Active 2017 Tinnitus, bilateral ; Note: Date Diagnosed : 04/26/2018 11:21 AM (H93.13) Not Available [facility] 4 03:03:18 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; Note: Date Diagnosed : 06/16/2021 3:42 PM (D10.5) Not Available [facility] 4 03:03:18 Chronic sinusitis 64968300 Active 2022 Other chronic sinusitis ; Note: Date Diagnosed : 3 9:02 AM (J32.8) Not Available [facility] 4 03:03:17 Allergic rhinitis 30807279 Active 2022 Allergic rhinitis, unspecifi ed; Note: Date Diagnosed : 3 8:56 AM (J30.9) Not Available [facility] 4 03:03:17 Deviated nasal septum 694919722 Active 2022 Deviated nasal septum; Note: Date Diagnosed : 3 9:02 AM (J34.2) Not Available [facility] 4 03:03:18 Nasal congestio n 99433805 Active 2022 Nasal congestio n; Note: Date Diagnosed : 3 8:56 AM (R09.81) Not Available [facility] 4 03:03:16 Hypertrop hy of nasal turbinate s 59747725 Active 2023 Hypertrop hy of nasal turbinate s; Note: Date Diagnosed : 12/14/2023 3:53 PM (J34.3) Not Available [facility] 4 03:03:17 Follow-up visit Active 2023 Medical surveilla nce following completed treatment ; Note: Date Diagnosed : 12/19/2023 12:17 PM (Z09) Not Available [facility] 4 03:03:17 Seasonal allergic rhinitis 662716457 Active 2023 JANI MCGARRY MD 100 [facility], [place], [address] , [facility] 4 14:52:31 Non-aller gic rhinitis 55991744954 1 Active 2023 JANI MCGARRY MD 100 [facility],[place] [address], [place], [address] , [facility] - [facility] 4 14:52:31 Problem Notes None recorded. Procedures Surgical History Date Name Laterality Status Provider Name and Address Organization Details Recorded Time 4 Allergy Testing-Full completed TAWNY MICHEL [address] [facility],[place] [address], [place], [address], [facility] 01/30/2024 14:27:50 4 NasalEndosco py_DP completed JANI MCGARRY MD 100 [facility],[place] [address], [place], [address], [facility] 01/23/2024 14:52:20 Imaging Results None recorded. Procedure Notes None recorded. Medical Equipment None Reported. Medications Name Sig Start Date Stop Date Status Note LastModified by Organization Details LastModified Time aspirin 81 mg tablet,ashanti yed release 2017 active Medication ID: [id number] Bra nd Name: aspirin Se nd Method: E-Prescrib ed Subs Allowed: subs OK Medicat ionGeneric Name: aspirin Not Available Not Available Not Available triamcinolo ne acetonide 0.1 % topical cream 01/29 completed Medication ID: [id number] Dur ation Value: 8 Brand Name: triamcinol one acetonide Send Method: E-Prescrib ed Subs Allowed: subs OK Medicat ionGeneric Name: triamcinol one acetonide Medication ID: [id number] Dur ation Value: 8 Brand Name: triamcinol one acetonide Send Method: E-Prescrib ed Subs Allowed: subs OK Medicat ionGeneric Name: triamcinol one acetonide Not Available Not Available Not Available warfarin 5 mg tablet 2017 active Medication ID: [id number] Dur ation Value: 30 Brand Name: warfarin [...] Updated DateTime 01/23/2024 182.88 cm Mary Levine [facility] 01/23/2024 14:33:57 Date Recorded Body height Oxygen saturation Oxygen saturation in Arterial blood by Pulse oximetry Heart rate Body mass index (BMI) Body weight Provider Name and Address Organization Details Last Updated DateTime 182.88 cm 96 % 96 % 67 /min 31.2 kg/m2 893507. 25 g TAWNY MICHEL [address] [place] [address], [phone] [place] [address] [facility] 13:24:25 Date Recorded Body height Body mass index (BMI) Body weight Provider Name and Address Organization Details Last Updated DateTime 02/14/2024 182.88 cm 31.2 kg/m2 881948.25 g Mary Levine [facility] 02/14/2024 13:06:18 Social History None recorded. Functional Status None recorded. Mental Status None recorded. Family History Nothing Reported. Medical History No medical history recorded. Past Encounters Encounter ID Performer Location Encounter Start Date Encounter Closed Date Diagnosis/Indication Diagnosis SNOMED-CT Code Diagnosis ICD10 Code Diagnosis IMO Codes Diagnosis Note [id number] JANI MCGARRY MD [facility] [address] [address] 01/23/2024 14:17:17 01/23/2024 14:54:31 Allergic rhinitis 64162553 J30.9 Exam and history are consistent with allergic rhinitis which may explain congestion which remains. We will obtain allergy testing to clarify the extent of allergy with f/u to review. Nasal congestion 3633017 0 R09.81 Notes improvemen t after surgery but still congested. May have an allergy component. Non-allergic rhinitis 31 00077124 01 J31.0 Seasonal a llergic rhinitis 006446135 J30.2 [id number] TAWNY MICHEL [facility] [address] [facility], [address] [place] [address] 01/30/2024 13:09:00 01/30/2024 16:16:31 Allergic rhinitis 64673333 J30.9 [id number] JANI MCGARRY MD [facility] [address] [place] [address] 02/14/2024 12:56:54 02/14/2024 13:23:17 Allergic rhinitis 82518457 J30.9 Allergy testing showed moderate allergy to [...] Name 02/11/2024 2 FOR LIFE () Jhonathan Kevin [id number] Jhonathan Kevin 02/11/2024 1 MEDICARE B-[place]: [employer] Jhonathan Kevin [id number] Jhonathan Kevin Notes Date Note Type Note Provider Name and Address Organization Details Recorded Time 01/23/2024 text/html ROS as noted in the HPI He had a septoplasty a month ago. Notes improved breathing overall but still mouth breathes and feels congested. JANI MCGARRY MD [address] [place] [address], [phone], [facility] 01/23/2024 14:53:17 02/14/2024 text/html ROS as noted in the HPI Hx of septoplasty and turbinate reduction 12/14/23. Still has congestion. Allergy testing was performed and showed moderate allergy to dust and mold. He says he is breathing much better through his nose than before but still has congestion. JANI MCGARRY MD [address] [place] [address],[address], [address], [facility] 02/14/2024 13:22:23
--- OUTSIDE RECORDS SUMMARY | 2025-05-28 16:40 | XMS_ITS | Patient Health Record ---
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
--- OUTSIDE RECORDS SUMMARY | 2025-05-28 16:40 | XMS_ITS ---
Author Name [facility] Organization Unknown Care Team Organization Name Specialty Phone Email Start Date End Da te [facility] Lanie Rincon Primary Care 10/13/2022 03/26/2024 [facility] Termed, PROVIDER Primary Care 06/15/202203/08
== END 2025-05-28 13:46 | disposition home or self-care (01) ==
LOC: HO.HSM 13:01
PROVIDERS: PCP Internal Medicine; Visit Provider Psychiatry & Neurology Neurology
DX: G31.84 Mild cognitive impairment of uncertain or unknown etiology (principal); G47.33 Obstructive sleep apnea (adult) (pediatric)
CPT/HCPCS: 99204

== ENCOUNTER 2025-05-28 13:00 | Outpatient (REF) | payer MEDICARE, OTHER, SELFPAY ==
[2025-05-28 16:05] LABS: Folate 7.4 ng/mL (> or = 4.0); Vitamin B12 304 pg/mL (200-900)
[2025-05-28 16:19] LABS: Thyroid Stimulating Hormone 0.46 uIU/mL (0.32-4.0)
--- OUTSIDE RECORDS SUMMARY | 2025-05-28 18:39 | XMS_ITS | Clinical Summary ---
Author Organization [address] Address [address] [place] [phone] Phone Care Team Providers Care Scalper Operator Name Role Phone José Reeder MD Primary Care Provider [phone] Allergies Active Allergy Reactions Criticality Noted Date Comments Bee Venom Protein (Honey Bee) Hives 2024 Medications umeclidinium-vilan teroL (ANORO ELLIPTA) 62.5-25 mcg/actuation inhaler Inhale 1 Puff into the lungs daily. - Inhalation Active cholecalciferol (VITAMIN D-3) 50 mcg (2,000 unit) tablet Take 1 Tablet by mouth daily. 06/01/20 24 Active tamsulosin (FLOMAX) 0.4 mg 24 hr capsule Take 2 Capsules by mouth at bedtime. 06/01/20 24 Active atorvastatin (LIPITOR) 40 mg tablet TAKE 1 TABLET DAILY 90 tablet 3 08/28/19 25 Active warfarin (COUMADIN) 5 mg tablet TAKE 1 TO 2 TABLETS DAILY. MAY CAUSE HEAVY BLEEDING. TAKE AT SAME TIME EVERY DAY. DO NOT CHANGE DIETARY HABITS. 180 tablet 3 09/19/19 25 Active albuterol HFA (Ventolin HFA) 90 mcg/actuation inhalerIndications :Stage 4 very severe COPD by GOLD classification (CMS/HCC V24, CMS/HCC V28) Inhale 2 puffs by mouth every 6 (six) hours if needed for shortness of breath or wheezing (cough and chest tightess). 18 g 1 10/17/19 25 026 Active donepeziL (ARICEPT) 5 mg tablet Take 1 tablet (5 mg total) by mouth at bedtime. 90 each 1 02/20/20 25 Active LORazepam (ATIVAN) 0.5 mg tablet Take 1 tablet 1 hour before MRI scan, repeat the dose just before the MRI scan if needed 2 tablet 02/26/20 25 Active fenofibrate (TRICOR) 145 mg tablet TAKE 1 TABLET AT BEDTIME (NEED TO BE SEEN FOR FURTHER REFILLS) 90 tablet 3 04/03/20 25 Active fluticasone-umecli dinium-vilanterol (Trelegy Ellipta) 100-62.5-25 mcg inhalerIndications :Stage 4 very severe COPD by GOLD classification (CMS/HCC V24, CMS/HCC V28),Pulmonary emphysema, unspecified emphysema type,Dyspnea on exertion,Asthma-CO PD overlap syndrome (CMS/HCC V24, CMS/HCC V28) Inhale 1 puff (100 mcg total) by mouth 1 (one) time each day. Rinse mouth with water after use to reduce aftertaste and incidence of candidiasis. Do not swallow. 1 each 3 05/06/20 25 026 Active fluticasone propionate (FLONASE) 50 mcg/actuation nasal sprayIndications:S tage 4 very severe COPD by GOLD classification (CMS/HCC V24, CMS/HCC V28),Viral upper respiratory tract infection Administer 2 sprays into each nostril 1 (one) time each day for 14 days. Shake gently. Before first use, prime pump. After use, clean tip and replace cap. 16 g 1 10/17/19 25 025 Discontin ued(Patie nt Discharge ) Active Problems Problem Noted Date Diagnosed Date Benign prostatic hyperplasia without lower urinary tract symptoms 12/10/2024 Polycythemia 12/10/2024 History of actinic keratoses 05/11/2024 FHx: premature coronary heart disease 05/11/2024 Encounter for screening for malignant neoplasm o f lung 05/11/2024 Sinus bradycardia 12/05/2023 Prediabetes 07/04/2023 Lumbar stenosis with neurogenic claudication 10/2021 Lab test negative for COVID-19 virus 11/24/2020 Pulmonary emphysema ([facility] V24, [facility] V28) 1 08/19/2018 Mild persistent asthma without complication 06/08 Stage 4 very severe COPD by GOLD classification ([facility] V24, [facility] V28) 12/14/2017 Pulmonary nodule 09/30/2017 Overview (05/11/2024): Tiny, on LDCT 09/2017 Asthma-COPD overlap syndrome ([facility] V24, [facility]/ [facility] V28) 05/28/2017 Wheezing 05/23/2017 Deviated nasal septum 11/18/2016 Coronary artery disease invo lving havasupai coronary artery without angina pectoris 10/07/2015 Overview (05/11/2024): Lexiscan MIBI 2012 - Small to medium in size, mild in intensity, distal anterior and apical defect that is suspicious for ischemia Colon polyp 11/13/2013 Arterial thrombosis ([facility] V24, [facility] V28) 0 10/19/2012 PAD (peripheral artery disease) ([facility] V24) Overview (05/11/2024): Have requested old records. 2010 patient underwent surgery for arterial embolism and peripheral vascular disease was told to remain anticoagulated indefinitely. Followed by Dr. Lucas ([facility] vascular) Mixed hyperlipidemia 08/18/2012 Tobacco use disorder 08/18/2012 Encounters Date Type Department Care Team Description 05/10/2025 Telephone Pulmonology - [place] [address] [address] Stacie Mckenna MA 05/06/2025 11:00 AM EDT Office Visit Pulmonology [facility] 175 [facility] [address] [place] [address] Lanie Rincon NP Stage 4 very severe COPD by GOLD classification ([facility] V24, [facility] V28) (Primary Dx); Pulmonary emphysema, unspecified emphysema type ([facility] V24, [facility] V28); Dyspnea on exertion; Asthma-COPD overlap syndrome ([facility] V24, [facility] V28); Pulmonary nodule; Encounter for screening for malignant neoplasm of lung; Obesity (BMI 30-39.9) 05/06/2025 Anticoagulation - Warfarin Visit Coumadin [address] [phone] José Reeder MD Arterial thrombosis ([facility] V24, [facility] V28) (Primary Dx); PAD (peripheral artery disease) ([facility] V24) 04/22/2025 Anticoagulation - Warfarin Visit Coumadin [address] [phone] Francisca Morales, STRIPE MARKER Arterial thrombosis ([facility] V24, [facility] V28) (Primary Dx); PAD (peripheral artery disease) ([facility] V24) 04/16/2025 Anticoagulation - Warfarin Visit Coumadin [address] [phone] Francisca Morales, STRIPE MARKER Arterial thrombosis ([facility] V24, [facility] V28) (Primary Dx); PAD (peripheral artery disease) ([facility] V24) 04/10/2025 Anticoagulation - Warfarin Visit Coumadin [address] [phone] Francisca Morales, STRIPE MARKER Arterial thrombosis ([facility] V24, [facility] V28) (Primary Dx); PAD (peripheral artery disease) ([facility] V24) 03/11/2025 Anticoagulation - Warfarin Visit Coumadin [address] [phone] Polly Sosa, STRIPE MARKER Arterial thrombosis ([facility] V24, [facility] V28) (Primary Dx); PAD (peripheral artery disease) ([facility] V24) 03/05/2025 Anticoagulation - Warfarin Visit Coumadin [address] [phone] Polly Sosa, STRIPE MARKER Arterial thrombosis ([facility] V24, [facility] V28) (Primary Dx); PAD (peripheral artery disease) ([facility] V24) 03/03/2025 8:56 AM EDT - 03/03/2025 11:59 PM EDT Hospital Encounter [facility] MRI [address] [place] [address] Discharge Disposition: Home or Self Care 02/27/2025 9:30 AM EDT Ancillary Procedure Pulmonology - [place] 175 [facility] [address] [place] [address] Stage 4 very severe COPD by GOLD classification (CMS/[facility] V24, [facility] V28); Dyspnea on exertion 02/25/2025 Telephone Adult Medicine [id number] [place] [address] José Reeder MD from Last 3 Months Immunizations Immunization Administration Dates Next Due Influenza Quadravalent, MDCK , 0.5ml, with preservative (Flucelvax) 6mo and older 05/23/2017 Influenza trivalent, 0.5mL ( Fluzone High-dose) 65yo and older 06/18/2021,06/03/2020,06/14/2018 Influenza trivalent, with pr eservative (Fluzone; Afluria) 6mo and older 05/30/2015,08/28/2014,06/28/2013 Mirantis SARS-CoV-2 COVID-19, mRNA, LNP-S, preservative free 04/30/2021 Pneumococcal conjugate 13 va lent (Prevnar 13, PCV13) 2mo and older 05/23/2017 Pneumococcal conjugate 20 va lent (Prevnar 20, PCV 20) 2mo and older 12/11/2024 Pneumococcal polysaccharide 23 valent (Pneumovax 23) 2yo and older 09/25/2018 Tdap Tetanus diptheria acell ular pertussis (Boostrix; Adacel) 7yo and older 08/18/2012 Zoster Live 07/31/2013 Surgical History Surgery Date Site/Laterality Comments OTHER SURGICAL HISTORY 09/27/2010 Right PROCEDURE: ---- OTHER ----; COMMENT: arterial embolectomies (right lower leg) OTHER SURGICAL HISTORY PROCEDURE: ---- OTHER ----; COMMENT: oral biopsy COLONOSCOPY 10/23/13 PROCEDURE: HISTORICAL COLONOSCOPY; COMMENT: adenoma; repeat in 5 yrs OTHER SURGICAL HISTORY 04/2011 Right PROCEDURE: HISTORY OTHER; COMMENT: right common femoral endarterectomy Medical History Medical History Date Comments Asthma-COPD overlap syndrome ([facility] V24, [facility] V28) 05/28/2017 DX:Asthma-COPD overlap syndr ome (HCC) PVD (peripheral vascular dis ease) ([facility] V24) 08/18/2012 DX:PVD (peripheral vascular disease) ([facility]); COMMENT: Have requested old records. 2010 patient underwent surgery for arterial embolism and peripheral vascular disease was told to remain anticoagulated indefinitely. Followed by Dr. Lucas ([facility] vascular) Hyperlipidemia 08/18/2012 DX:Hyperlipidemi a Deviated nasal septum 11/18/2016 DX:Deviate d nasal septum Coronary artery disease invo lving havasupai coronary artery without angina pectoris 10/07/2015 DX:Coronary artery disease i nvolving havasupai coronary artery without angina pectoris; COMMENT: Lexiscan MIBI 2012 - Small to medium in size, mild in intensity, distal anterior and apical defect that is suspicious for ischemia Colon polyp 11/13/2013 DX:Colon polyp Arterial embolism ([facility] V 24, [facility] V28) 10/19/2012 DX:Arterial embolism ([facility]) History of actinic keratoses 05/04/2018 DX: History of actinic keratoses Family History Medical History Relation Name Comments Breast cancer Aunt Maternal Heart attack Brother Asthma Daughter 1 No Known Problems Daughter 2 No Known Problems Daughter 3 COPD Father respiratory stephanie lure CABG Mother No Known Problems Sister No Known Problems Son Colon cancer Neg Hx Diabetes Neg Hx Prostate cancer Neg Hx Relation Name Status Comments Aunt Maternal Brother (Age 34) mi Daughter 1 Alive Daughter 2 Alive Daughter 3 Alive Father Maternal Grandfather Maternal Grandmother Mother Alive cad, cabg age 6 8 Paternal Grandfather Paternal Grandmother Sister Alive Son Alive Social History Tobacco Use Types Packs/Day Years Used Date Smoking Tobacco: Former Cigarettes Q uit: 02/08/2019 Smokeless Tobacco: Never Tobacco Cessation:Counseling Given: Not Answered Alcohol Use Standard Drinks/Week Comments Yes 1 (1 standard drink = 0.6 oz pur e alcohol) Sex and Gender Information Value Date Recorded Sex Assigned at Male 10/23/2024 11:55 AM EDT Legal Sex Male 9:51 PM EST Gender Identity Male 10/23/2024 11:55 AM EDT Sexual Orientation Straight 10/24/2024 1: 52 PM EDT Obstetrics History Last Filed Vital Signs Vital Sign Reading Time Taken Comments Blood Pressure 126/64 05/06/2025 10:50 AM EDT Pulse 57 05/06/2025 10:50 AM EDT Temperature 35.9 C (96.7 F) 05/06/2025 10:50 AM EDT Respiratory Rate 18 05/06/2025 10:50 AM EDT Oxygen Saturation 94% 05/06/2025 10:50 AM EDT Inhaled Oxygen Concentration - - Weight 111 kg (245 lb 6.4 oz) 05/06/2025 10:50 A M EDT Height 182.9 cm (6') 05/06/2025 10:50 AM EDT Body Mass Index 33.28 05/06/2025 10:50 AM EDT Plan of Treatment Upcoming Encounters Date Type Department Care Team (Late st Contact Info) Description 06/14/2025 3:00 PM EST Office Visit Adult Medicine [address] [phone] José Reeder MD [address] [place] [address] 07/01/2025 1:25 PM EST Office Visit Pulmonology - [place] 175 [facility] [address] [place] [address] Lanie Rincon, MICHA [address] [place] [address] 11/26/2025 10:00 AM EDT Ancillary Procedure [facility] Cardiology [facility] - [facility] [address] [facility] [address] [place] [address] 11/28/2025 10:00 AM EDT Ancillary Procedure [facility] Cardiology [facility] - [facility] [address] [address] 01/03/2026 11:30 AM EDT Office Visit Vascular Surgery - [place] [address] [place] [address] Manuel Zaman MD [facility] [place] [address] Health Maintenance Due Date Last Done Comments Falls Risk Assessment 07/17/2022 Medicare Annual Wellness Visit 07/17/2022 Social Influencers of Health Screening 07/17/2022 Depression Screening 08/08/2024 COVID-19 Vaccine ( season) 2025 04/30/2021, 10/05/2020, 09/15/2020 Influenza Vaccine (#1) 2025 , 07/07/2023, 05/24/2022, Additional history exists Hypertension/CHF/CAD Annual BMP Blood Test 12/11/2025 12/11/2024, 12/01/2023 Cholesterol Screening (Lipid Panel) 12/11/2029 12/11/2024, 09/23/2023, 09/23/2023 DTaP,Tdap,and Td Vaccines (4 - Td or Tdap) 07/30/2034 07/30/2024, 12/07/2022, 08/18/2012 Colorectal Cancer Screening: Colonoscopy 02/06/2035 02/06/2025, 05/21/2019, 05/21/2019 Hepatitis C Screening Completed 02/22/2013 Abdominal Aortic Aneurysm (AAA) Screen Completed 05/31/2017, 05/31/2017 Zoster Vaccines Completed 12/07/2021, 12/0 04/2020, 07/31/2013 RSV Immunization Adult Patients Completed 07/07/2023 Pneumococcal Vaccine: 50+ Years Completed 12/11/2024, 09/25/2018, 05/23/2017, Additional history exists HIB Vaccines Aged Out No longer eligi ble based on patient's age to complete this topic HPV Vaccines Aged Out No longer eligi ble based on patient's age to complete this topic Hepatitis A Vaccines Aged Out No long er eligible based on patient's age to complete this topic Hepatitis B Vaccines Aged Out No long er eligible based on patient's age to complete this topic IPV Vaccines Aged Out No longer eligi ble based on patient's age to complete this topic MMR Vaccines Aged Out No longer eligi ble based on patient's age to complete this topic Meningococcal ACWY Vaccine Aged Out N o longer eligible based on patient's age to complete this topic Meningococcal B Vaccine Aged Out No l onger eligible based on patient's age to complete this topic RSV Immunization Patients Under 20 months Aged Out No longer eligible based on patient's age to complete this topic Varicella Vaccines Aged Out No longer eligible based on patient's age to complete this topic Procedures Procedure Name Priority Date/Time Associated Diagnosis Comments PROTHROMBIN TIME WITH INR Routine 05/06/2025 9:18 AM EDT Arterial thrombosis ([facility]/HCC V24, CMS/HCC V28) PAD (peripheral artery disease) ([facility] V24) Anticoagulation management encounter PROTHROMBIN TIME WITH INR Routine 04/22/2025 8:47 AM EDT Arterial thrombosis ([facility]/HCC V24, CMS/HCC V28) PAD (peripheral artery disease) ([facility] V24) Anticoagulation management encounter PROTHROMBIN TIME WITH INR Routine 04/16/2025 8:32 AM EDT Arterial thrombosis (CMS/HCC V24, CMS/HCC V28) PAD (peripheral artery disease) ([facility] V24) Anticoagulation management encounter PROTHROMBIN TIME WITH INR Routine 04/10/2025 9:05 AM EDT Arterial thrombosis (CMS/HCC V24, CMS/HCC V28) PAD (peripheral artery disease) ([facility]/HCC V24) Anticoagulation management encounter PROTHROMBIN TIME WITH INR Routine 03/11/2025 10:55 AM EDT Arterial thrombosis (CMS/HCC V24, CMS/HCC V28) PAD (peripheral artery disease) ([facility]/HCC V24) Anticoagulation management encounter PROTHROMBIN TIME WITH INR Routine 03/05/2025 8:43 AM EDT Arterial thrombosis (CMS/HCC V24, CMS/HCC V28) PAD (peripheral artery disease) ([facility]/HCC V24) Anticoagulation management encounter SIX MINUTE WALK TEST Routine 03/05/2025 6:43 AM EDT Stage 4 very severe COPD by GOLD classification (CMS/HCC V24, CMS/HCC V28) Dyspnea on exertion MR BRAIN WO CONTRAST Routine 03/03/2025 10:14 AM EDT Cognitive impairment Forgetfulness PULMONARY FUNCTION TESTING Routine 02/27/2025 9:52 AM EDT Stage 4 very severe COPD by GOLD classification (CMS/HCC V24, CMS/HCC V28) Dyspnea on exertion EXTERNAL COLONOSCOPY REPORT Routine 02/06/2025 3:37 PM EDT BASIC METABOLIC PANEL Routine 12/11/2024 2:39 PM EDT Pulmonary emphysema, unspecified emphysema type (CMS/HCC V24, CMS/HCC V28) Pulmonary nodule PAD (peripheral artery disease) (CMS/HCC V24) Mixed hyperlipidemia Polycythemia Benign prostatic hyperplasia without lower urinary tract symptoms Prediabetes LIPID PANEL WITH REFLEX TO DIRECT LDL Routine 12/11/2024 2:39 PM EDT Pulmonary emphysema, unspecified emphysema type (CMS/HCC V24, CMS/HCC V28) Pulmonary nodule PAD (peripheral artery disease) (CMS/HCC V24) Mixed hyperlipidemia Polycythemia Benign prostatic hyperplasia without lower urinary tract symptoms Prediabetes ABDOMINAL AORTIC ANEURYSM SCRREN Routine 05/31/2017 HEPATITIS C SCREENING Routine 02/22/2013 from Last 3 Months or Most Recently Relevant to Health Maintenance Results * (ABNORMAL) Prothrombin time with INR (05/06/2025 9:18 AM EDT) Only the most recent of6 resultswithin the time period is included. Protime 32.6(H) 10.6 - 13.9 sec LAB COAGULATION METHOD 05/06/2025 10:22 AM [facility] INR 2.6 LAB COAGULATION METHOD 05/06/2025 10:22 AM [facility] Blood Venous blood specimen / Unknown Venipuncture / Unknown 05/06/2025 9:18 AM EDT 05/06/2025 9:18 AM EDT José Reeder MD LAB BLOOD ORDERABLES Final Result [facility] [address] [place] [address], [place] [phone] * 6 minute walk test (03/05/2025 6:43 AM EDT) Impressions Olive Gonzalez MA - 03/05/2025 6:43 AM EDT Walked six minutes covering (152m/500ft) without Leg Fatigue, Mild SOB Lowest oxygen saturation was 94%. Returned to PFT lab for Rest & Recovery. After 1 min RaSpO2 = 97% HR = 70; After 2 min RaSpO2 = 97% HR = 64. No indication for supplemental Oxygen for activity. Lanie Rincon SECURITY LEAD IN CLINIC/BEDSIDE ORDER FELECIA Final Result * MR Brain wo Contrast (03/03/2025 10:14 AM EDT) Anatomical Region Laterality Modality Head and Neck Magnetic Resonan ce 03/05/2025 12:2 8 PM EDT Impressions 03/05/2025 12:30 PM EDT No acute infarct, mass effect, or intracranial hemorrhage. Minimal chronic small vessel schema change throughout the supratentorial white matter. No pattern of cerebral volume loss to suggest a specific neurodegenerative process. -------- FINAL REPORT -------- Dictated By: DARREL CUNNINGHAM Dictated Date: 03/05/2025 12:28 ET Assigned Physician: DARREL CUNNINGHAM Reviewed and Electronically Signed By: DARREL CUNNINGHAM Signed Date: 03/05/2025 12:30 ET Workstation ID: [id number] Transcribed By: Self Edit Transcribed Date: 03/05/2025 12:28 ET Narrative 03/05/2025 12:30 PM EDT PROCEDURE: Brain MRI INDICATION: Memory loss, cognitive impairment TECHNIQUE: Multiplanar, multisequence MRI of the brain Without contrast. COMPARISON: No priors available. FINDINGS: No acute infarct, mass effect, or intracranial hemorrhage. Minimal nonspecific T2 hyperintense foci throughout the supratentorial and pontine white matter, mostly related to chronic small vessel ischemic change. Ventricles, sulci, and cisterns are normal in size and configuration. No hydrocephalus. Sella and foramen magnum are normal. No abnormal intracranial susceptibility artifact. Major intracranial arterial flow voids are within normal limits. Scattered mucosal thickening seen throughout the sinuses. Mastoid air cells are clear. Bilateral lens implants. Extracranial soft tissues and calvarium are normal. Procedure Note Darrel Cunningham MD - 03/05/2025 PROCEDURE: Brain MRI INDICATION: Memory loss, cognitive impairment TECHNIQUE: Multiplanar, multisequence MRI of the brain Without contrast. COMPARISON: No priors available. FINDINGS: No acute infarct, mass effect, or intracranial hemorrhage. Minimal nonspecific T2 hyperintense foci throughout the supratentorial andpontine white matter, mostly related to chronic small vessel ischemicchange. Ventricles, sulci, and cisterns are normal in size and configuration. Nohydrocephalus. Sella and foramen magnum are normal. No abnormal intracranialsusceptibility artifact. Major intracranial arterial flow voids are within normal limits. Scattered mucosal thickening seen throughout the sinuses. Mastoid aircells are clear. Bilateral lens implants. Extracranial soft tissues and calvarium arenormal. IMPRESSION: No acute infarct, mass effect, or intracranial hemorrhage. Minimal chronic small vessel schema change throughout the supratentorialwhite matter. No pattern of cerebral volume loss to suggest a specific neurodegenerativeprocess. -------- FINAL REPORT -------- Dictated By: DARREL CUNNINGHAM Dictated Date: 03/05/2025 12:28 ET Assigned Physician: DARREL CUNNINGHAM Reviewed and Electronically Signed By: DARREL CUNNINGHAM Signed Date: 03/05/2025 12:30 ET Workstation ID: [id number] Transcribed By: Self Edit Transcribed Date: 03/05/2025 12:28 ET us José Reeder MD IM MRI PROCEDURES Final Re sult * Pulmonary function testing: Carbon Monoxide Diffusing Capacity, Spirometry with Bronchodilator, Flow Volume Loop, Maximum Voluntary Ventilation, Spirometry, Vital Capacity Test (02/27/2025 9:52 AM EDT) Impressions Antonia Carlos MD - 02/27/2025 9:52 AM EDT Spirometry done today reveals FEV1 of 1.41 which is 40% of the predicted value, FVC is 2.28 which is 48% of the predicted value, FEV1 to FVC ratio is 85% of the predicted value, there is bronchodilator response. Flow volume is consistent with obstructive pattern. Static lung volumes including total lung capacity is within normal limit however there is significant air trapping. Diffusion lung capacity is moderately reduced and remained moderately reduced after correction for alveolar volume. This study is consistent with severe obstructive lung disease with bronchodilator response with significant air trapping and severe reduction in diffusion lung capacity suggestive of diagnosis of emphysema however clinical correlation is advised. Simple pulmonary exercise testing interpretation. PFT performed Walked six minutes covering (152m/500ft) without Leg Fatigue, Mild SOB Lowest oxygen saturation was 94%. Returned to PFT lab for Rest & Recovery. After 1 min RaSpO2 = 97% HR = 70; After 2 min RaSpO2 = 97% HR = 64. No indication for supplemental Oxygen for activity Lanie Rincon SECURITY LEAD PFT ORDERABLES Final R esult * External Colonoscopy Report (02/06/2025 3:37 PM EDT) Anatomical Region Laterality Modality Endoscopy Historical Provider GI~PROCEDURE ORDERABLES F inal Result * (ABNORMAL) Lipid panel with reflex to direct LDL (12/11/2024 2:39 PM EDT) Cholesterol 139 0 - 200 mg/dL LAB CHEMISTRY METHOD 12/11/2024 6:01 PM EDT [facility] Triglycerides 228(H) 0 - 150 mg/dL LAB CHEMISTRY METHOD 12/11/2024 6:01 PM EDT [facility] HDL 45 >=40 mg/dL LAB CHEMISTRY METHOD 12/11/2024 6:01 PM EDT [facility] LDL Calculated 48 0 - 100 mg/dL LAB CHEMISTRY METHOD 12/11/2024 6:01 PM EDT [facility] VLDL Cholesterol Jovan 45.6 mg/dL LAB CHEMISTRY METHOD 12/11/2024 6:01 PM [facility] Non HDL Chol. (LDL+VLDL) 94 <145 mg/dL LAB CHEMISTRY METHOD 12/11/2024 6:01 PM [facility] Chol/HDL Ratio 3.1 0.0 - 4.4 LAB CHEMISTRY METHOD 12/11/2024 6:01 PM EDT [facility] Blood Venous blood specimen / Unknown Venipuncture / Unknown 12/11/2024 2:39 PM EDT 12/11/2024 2:39 PM EDT us José Reeder MD LAB BLOOD ORDERABLES Final Result [facility] [address] [place] [address], [place] [phone] * (ABNORMAL) Basic metabolic panel (12/11/2024 2:39 PM EDT) Sodium 140 133 - 145 mmol/L LAB CHEMISTRY METHOD 12/11/2024 6:01 PM [facility] Potassium 4.4 3.5 - 5.5 mmol/L LAB CHEMISTRY METHOD 12/11/2024 6:01 PM [facility] Chloride 107 96 - 110 mmol/L LAB CHEMISTRY METHOD 12/11/2024 6:01 PM [facility] CO2 30 21 - 32 mmol/L LAB CHEMISTRY METHOD 12/11/2024 6:01 PM [facility] Anion Gap 3 3 - 11 LAB CHEMISTRY METHOD 12/11/2024 6:01 PM [facility] Glucose 84 70 - 100 mg/dL LAB CHEMISTRY METHOD 12/11/2024 6:01 PM [facility] BUN 22 5 - 25 mg/dL LAB CHEMISTRY METHOD 12/11/2024 6:01 PM EDT [facility] Creatinine 1.35(H) 0.70 - 1.30 mg/dL LAB CHEMISTRY METHOD 12/11/2024 6:01 PM EDT [facility] eGFR 56(L) >=60 mL/min/1. 73m2 LAB CHEMISTRY METHOD 12/11/2024 6:01 PM EDT [facility] Comment:Calculation based on the Chronic Kidney Disease Epidemiology Collaboration (CKD-EPI) equation refit without adjustment for race. BUN/Creatinine Ratio 16.3 LAB CHEMISTRY METHOD 12/11/2024 6:01 PM T [facility] Calcium 10.0 8.5 - 10.5 mg/dL LAB CHEMISTRY METHOD 12/11/2024 6:01 PM EDT [facility] Blood Venous blood specimen / Unknown Venipuncture / Unknown 12/11/2024 2:39 PM EDT 12/11/2024 2:39 PM EDT José Reeder MD LAB BLOOD ORDERABLES Final Result [facility] [address] [place] [address], * Abdominal Aortic Aneurysm Screen (05/31/2017) Abdominal Aortic Aneurysm (AAA) Screening abstracted Anatomical Region Laterality Modality Other Historical Provider HEALTH MAINTENANCE Final Result * Hepatitis C Screening (02/22/2013) Hepatitis C Screening abstracted Historical Provider HEALTH MAINTENANCE Final Result from Last 3 Months or Most Recently Relevant to Health Maintenance Insurance MEDICARE [facility] Care Teams Scalper Operator Relationship Specialty Start Date End Date José Reeder MD [address] [place] [address] PCP - General Internal Medicine 02/22/22
[2025-05-29 03:20] LABS: Syphilis Screen Nonreactive (Nonreactive)
[2025-05-29 05:34] LABS: Lyme Abs Screen <0.90 index
== END 2025-05-28 13:01 | disposition home or self-care (01) ==
LOC: HO.LAB 13:00
PROVIDERS: PCP Internal Medicine; Visit Provider Psychiatry & Neurology Neurology
DX: G47.33 Obstructive sleep apnea (adult) (pediatric) (principal); G31.84 Mild cognitive impairment of uncertain or unknown etiology; Z01.84 Encounter for antibody response examination; Z87.891 Personal history of nicotine dependence
CPT/HCPCS: 36415; 82607; 82746; 84443; 86617; 86618; 86780; 99202

== ENCOUNTER → 2025-07-23 07:48 | Outpatient (REF) | payer MEDICARE, OTHER, SELFPAY ==
--- OUTSIDE RECORDS SUMMARY | 2025-07-23 07:52 | XMS_ITS | Encounter Summary ---
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 Up Forklift Operator Name Role Phone José Reeder MD Primary Care Provider [phone] Encounter Details Date Type Department Care Team (Late st Contact Info) Description 06/10/2025 Anticoagulation - Warfarin Visit [facility] [address] [phone] José Reeder MD [address] [place] [address] Arterial thrombosis (CMS/HCC V24, CMS/HCC V28) (Primary Dx); PAD (peripheral artery disease) (CMS/HCC V24) Social History Tobacco Use Types Packs/Day Years Used Date Smoking Tobacco: Former Cigarettes 0 Q uit: 02/08/2019 Smokeless Tobacco: Never Alcohol Use Standard Drinks/Week Comments Yes 1 (1 standard drink = 0.6 oz pur e alcohol) Housing Instability Answer Date Recorde d Are you worried that in the next 2 months you may not have stable housing? No 06/14/2025 Food Access & Nutrition Answer Date Rec orded Do you have access to a vari ety of food including fruits and vegetables? No 06/14/2025 Health Literacy Answer Date Recorded How often do you need to hav e someone help you when you read instructions, pamphlets, or other written material from your doctor or pharmacy? Never 06/14/2025 Caregiver: How often do you need to have someone help you when you read instructions, pamphlets, or other written material from your doctor or pharmacy? Not on file 06/14/2025 Financial Risk Answer Date Recorded How hard is it for you to pa y for the very basics like food, housing, medical care, and air conditioning / heating? Not very hard 06/14/2025 Transportation Answer Date Recorded Has the lack of transportati on kept you from meetings, work, or from getting things needed for daily living? No Has the lack of transportati on kept you from medical appointments or from getting medications? No 06/14/2025 Social Isolation Answer Date Recorded How often do you feel lonely or isolated from those around you? Sometimes 06/14/2025 Food Risk Answer Date Recorded Within the past 12 months we worried whether our food would run out before we got money to buy more. Never true 06/14/2025 Within the past 12 months th e food we bought just didn't last and we didn't have money to get more. Never true 06/14/2025 Dependent Care Answer Date Recorded Do you need help finding or paying for care for your loved ones. For example, child welfare caseworker or elderly care for an older adult? No 06/14/2025 Education Answer Date Recorded Do you think completing more education or training, like finishing a GED, going to college, or learning a trade, would be helpful for you? No 06/14/2025 Employment and Income Answer Date Recor ded During the last four weeks, have you been actively looking for work? No 06/14/2025 Living Situation Answer Date Recorded What is your living situation? Unrecognized valu e 06/14/2025 Sex and Gender Information Value Date Recorded Sex Assigned at Male 10/23/2024 11:55 AM EDT Legal Sex Male 9:51 PM EST Gender Identity Male 10/23/2024 11:55 AM EDT Sexual Orientation Straight 10/24/2024 1: 52 PM EDT documented as of this encounter Progress Notes * Francisca Morales LPN - 06/10/2025 1:05 PM EST Anticoagulation Summary As of 06/10/2025 INR goal: 2.0-3.0 TTR: 75.7% (11.7 mo) INR used for dosin.0 (06/10/2025) Warfarin maintenance plan: 7.5 mg (5 mg x 1.5) every Mon; 5 mg (5 mg x 1) all other days Weekly warfarin total: 37.5 mg Plan last modified: Francisca Morales LPN (06/10/2025) Next INR check: 07/08/2025 Priority: High Target end date: -- Indications Arterial thrombosis (CMS/HCC V24 CMS/HCC V28) [I74.9] PAD (peripheral artery disease) (CMS/HCC V24) [I73.9] Anticoagulation Episode Summary INR check location: Anticoagulation Clinic Preferred lab: -- Send INR reminders to: [facility] [place] ANTICOAGULATION POOL Comments: -- Anticoagulation Care Providers Provider Role Specialty Phone number José Reeder MD [facility] Internal Medicine [phone] Patient presents for follow-up of ongoing Warfarin therapy. Patient had his INR drawn via Lab Draw.Patient denies any significant issues with adherence to the medication regimen. Patient denies experiencing any symptoms of bleeding, such as unusual bruising, nosebleeds, hematuria, or melena. Patient reports feeling generally well and denies any new complaints. Plan of care: New warfarin dose: No change Warfarin education of dietary considerations, medication/supplement interactions, and the need to continue avoiding activities that increase the risk of injury or bleeding reinforced. Patient verbalized understanding of ongoing INR monitoring and dosage change. Patient is aware of the signs of potential complications and knows to contact the clinic if they occur. Anticoagulation Flowsheet updated with new plan of care. Plan discussed with provider, no additional changes at this time. Anticoagulation Clinic Protocol Dose Type Dose Range INR Dose Adjustment # Doses Omitted Recheck Date Mini Dose 1.4-2.0 Very Low <1.2 Consult Provider 0 1 week Low 1.2-1.4 If singular event - no change If 2 in a row or 2 of the last 3 - Increase weekly dose by 10% 0 1 week In Range 1.4-2.0 No adjustment 0 1-4 weeks* High 2.0-3.0 If singular event - no change If 2 in a row or 2 of the last 3 - Decrease weekly dose by 10% 0 1 week Very High >3.0 Consult Provider 2 2 days If OK after 2 days - Decrease weekly dose by 10% 0 1 week Usual Dose 2.0-3.0 Very Low <1.5 Consult Provider 0 1 week Low 1.5-2.0 If singular event - No change If 2 in a row or 2 of the last 3 - Increase weekly dose by 10% 0 1 week In Range 2.0-3.0 No Adjustment 0 1-4 weeks* High >3.0-3.5 If singular event - No change If 2 in a row or 2 of the last 3 - Decrease weekly dose by 10% 0 1 week Very High >3.5-4.0 Consult Provider 1 2 days >4.0 Consult Provider 2 2 days If OK after 2 days - Decrease weekly dose by 10% 0 1 week Mechanical Valve 2.5-3.5 Very Low <1.5 Consult Provider 0 1 week Low 1.5-2.5 If singular event - No change If 2 in a row or 2 of the last 3 - Increase weekly dose by 10% 0 1 week In Range 2.5-3.5 No Adjustment 0 1-4 weeks* High >3.5-4.0 If singular event - No change If 2 in a row or 2 of the last 3 - Decrease weekly dose by 10% 0 1 week Very High >4.0-4.9 Consult Provider 1 2 days >5.0 Consult Provider 2 2 days If OK after 2 days - Decrease weekly dose by 10% 0 1 week * In range 1 week = recheck in 1 week In range 2 weeks = recheck in 2 weeks In range 3 weeks = recheck in 3 weeks In range 4 weeks = recheck in 4 weeks Cosigned by José Reeder MD at 06/10/2025 1:09 PM EST documented in this encounter Plan of Treatment Upcoming Encounters Date Type Department Care Team (Late st Contact Info) Description 10/15/2025 2:30 PM EDT Office Visit [address] [phone] José Reeder MD [address] [place] [address] 11/26/2025 10:00 AM EDT Ancillary Procedure [facility] [address] [place] [address] 11/28/2025 10:00 AM EDT Ancillary Procedure [facility] [address] [place] [address] 01/03/2026 11:30 AM EDT Office Visit Vascular Surgery - [place] [address] [place] [address] Manuel Zaman MD [address] [place] [phone] 01/09/2026 2:45 PM EDT Office Visit Pulmonology - [place] [address] [place] [address] Lanie Rincon NP [address] [place] [phone] documented as of this encounter Visit Diagnoses Diagnosis Arterial thrombosis (CMS/HCC V24, CMS/HCC V28)- Primary Embolism and thrombosis of unspecified artery PAD (peripheral artery disease) (CMS/HCC V24) Unspecified peripheral vascular disease documented in this encounter Care Teams Stand Up Forklift Operator Relationship Specialty Start Date End Date José Reeder MD [address] [place], [place] PCP - General Internal Medicine 02/22/22 documented as of this encounter
--- OUTSIDE RECORDS SUMMARY | 2025-07-23 07:52 | XMS_ITS | Clinical Summary ---
Author Organization [address] Address [address] [place] [phone] Phone Care Team Providers Care Telemetry Rn Name Role Phone José Reeder MD Primary Care Provider [phone] Allergies Active Allergy Reactions Criticality Noted Date Comments Bee Venom Protein (Honey Bee) Hives 2024 Medications tamsulosin (FLOMAX) 0.4 mg 24 hr capsule Take 2 Capsules by mouth at bedtime. 06/01/20 24 Active warfarin (COUMADIN) 5 mg tablet TAKE 1 TO 2 TABLETS DAILY. MAY CAUSE HEAVY BLEEDING. TAKE AT SAME TIME EVERY DAY. DO NOT CHANGE DIETARY HABITS. 180 tablet 3 09/19/19 25 Active albuterol HFA (Ventolin HFA) 90 mcg/actuation inhalerIndication s:Stage 4 very severe COPD by GOLD classification (CMS/HCC V24, CMS/HCC V28) Inhale 2 puffs by mouth every 6 (six) hours if needed for shortness of breath or wheezing (cough and chest tightess). 18 g 1 10/17/19 25 2025 Active LORazepam (ATIVAN) 0.5 mg tablet Take 1 tablet 1 hour before MRI scan, repeat the dose just before the MRI scan if needed 2 tablet 02/26/20 25 Active fenofibrate (TRICOR) 145 mg tablet TAKE 1 TABLET AT BEDTIME (NEED TO BE SEEN FOR FURTHER REFILLS) 90 tablet 3 04/03/20 25 Active atorvastatin (LIPITOR) 40 mg tablet Take 1 tablet (40 mg total) by mouth 1 (one) time each day. 90 tablet 1 06/14/20 25 Active donepeziL (ARICEPT) 5 mg tablet Take 1 tablet (5 mg total) by mouth at bedtime. 90 each 1 06/14/20 25 Active cyanocobalamin (Vitamin B-12) 500 mcg tabletIndications :B12 deficiency Take 1 tablet (500 mcg total) by mouth 1 (one) time each day. 90 each 1 06/14/20 25 Active cholecalciferol (VITAMIN D-3) 25 mcg (1,000 unit) tablet Take 1 tablet (1,000 Units total) by mouth 1 (one) time each day. Active Trelegy Ellipta 100-62.5-25 mcg inhalerIndication s:Stage 4 very severe COPD by GOLD classification (CMS/HCC V24, CMS/HCC V28),Pulmonary emphysema (CMS/HCC V24, CMS/HCC V28),Dyspnea on exertion,Asthma-C OPD overlap syndrome (CMS/HCC V24, CMS/HCC V28) USE 1 INHALATION DAILY. RINSE MOUTH WITH WATER AFTER USE TO REDUCE AFTERTASTE AND INCIDENCE OF CANDIDIASIS. DO NOT SWALLOW. 180 each 3 07/17/20 25 Active fluticasone-umecl idinium-vilantero l (Trelegy Ellipta) 100-62.5-25 mcg inhalerIndication s:Stage 4 very severe COPD by GOLD classification (CMS/HCC V24, CMS/HCC V28),Pulmonary emphysema, unspecified emphysema type,Dyspnea on exertion,Asthma-C OPD overlap syndrome (CMS/HCC V24, CMS/HCC V28) Inhale 1 puff (100 mcg total) by mouth 1 (one) time each day. Rinse mouth with water after use to reduce aftertaste and incidence of candidiasis. Do not swallow. 1 each 3 05/06/20 25 2024 Discontinued Active Problems Problem Noted Date Diagnosed Date Benign prostatic hyperplasia without lower urinary tract symptoms 12/10/2024 Assessment & Plan (06/14/2025 10:03 PM EST): Orders: Basic metabolic panel; Future Polycythemia 12/10/2024 Assessment & Plan (06/14/2025 10:03 PM EST): Orders: CBC and differential; Future Basic metabolic panel; Future History of actinic keratoses 05/11/2024 FHx: premature coronary heart disease 05/11/2024 Encounter for screening for malignant neoplasm o f lung 05/11/2024 Sinus bradycardia 12/05/2023 Prediabetes 07/04/2023 Assessment & Plan (06/14/2025 10:03 PM EST): Orders: Hemoglobin A1c; Future Basic metabolic panel; Future Lumbar stenosis with neurogenic claudication 10/2021 Lab test negative for COVID-19 virus 11/24/2020 Pulmonary emphysema 06/19/2019 Mild persistent asthma without complication 06/08 Stage 4 very severe COPD by GOLD classification 12/14/2017 Assessment & Plan (06/14/2025 10:03 PM EST): Pulmonary nodule 09/30/2017 Overview (05/11/2024): Tiny, on LDCT 09/2017 Assessment & Plan (06/14/2025 10:03 PM EST): Asthma-COPD overlap syndrome 05/28/2017 Wheezing 05/23/2017 Deviated nasal septum 11/18/2016 Coronary artery disease invo lving [place] coronary artery without angina pectoris 10/07/2015 Overview (05/11/2024): Lexiscan MIBI 2012 - Small to medium in size, mild in intensity, distal anterior and apical defect that is suspicious for ischemia Colon polyp 11/13/2013 Arterial thrombosis 10/19/2012 PAD (peripheral artery disease) 08/18/2012 Overview (05/11/2024): Have requested old records. 2010 patient underwent surgery for arterial embolism and peripheral vascular disease was told to remain anticoagulated indefinitely. Followed by Dr. Lucas ([facility] vascular) Assessment & Plan (06/14/2025 10:03 PM EST): Orders: Basic metabolic panel; Future Mixed hyperlipidemia 08/18/2012 Assessment & Plan (06/14/2025 10:03 PM EST): Orders: Basic metabolic panel; Future Tobacco use disorder 08/18/2012 Encounters Date Type Department Care Team Description 07/12/[address] [phone] José Reeder MD 07/11/2025 3:10 PM EST Office Visit Pulmonology [address] [place] [phone] Lanie Rincon NP Stage 4 very severe COPD by GOLD classification (CMS/HCC V24, CMS/HCC V28) (Primary Dx); Dyspnea on exertion; Pulmonary nodule; Encounter for screening for malignant neoplasm of lung; Obesity (BMI 30-39.9) 07/11/2025 2:50 PM EST Lab Draw Station - [facility] [address] [facility] [address] [place] [phone] PAD (peripheral artery disease) (CMS/HCC V24); Mixed hyperlipidemia; Polycythemia; Prediabetes; Benign prostatic hyperplasia without lower urinary tract symptoms; Arterial thrombosis (CMS/HCC V24, CMS/HCC V28); Anticoagulation management encounter 07/11/2025 Results Follow-Up Adult [address] [phone] José Reeder MD 07/02/2025 Telephone Pulmonology [address] [phone] Lanie Rincon NP 06/14/2025 3:00 PM EST Office Visit Adult [address] [phone] José Reeder MD Mild cognitive impairment (Primary Dx); B12 deficiency; Stage 4 very severe COPD by GOLD classification (CMS/HCC V24, CMS/HCC V28); Pulmonary nodule; Polycythemia; PAD (peripheral artery disease) ([facility] V24); Mixed hyperlipidemia; Prediabetes; Atypical mole; Benign prostatic hyperplasia without lower urinary tract symptoms; Encounter for subsequent annual wellness visit (AWV) in Medicare patient 06/10/2025 10:30 AM EST Lab Draw Station - [address] Arterial thrombosis ([facility] V24, [facility] V28); PAD (peripheral artery disease) ([facility] V24); Anticoagulation management encounter 06/10/2025 Anticoagulation - Warfarin Visit Coumadin [facility] - [address] [phone] José Reeder MD Arterial thrombosis ([facility] V24, [facility] V28) (Primary Dx); PAD (peripheral artery disease) ([facility] V24) 06/03/2025 Anticoagulation - Warfarin Visit Coumadin [address] [phone] Jsoé Reeder MD Arterial thrombosis ([facility] V24, [facility] V28) (Primary Dx); PAD (peripheral artery disease) ([facility] V24) 05/10/2025 Telephone Pulmonology - [address] [phone] Stacie Mckenna NM 05/06/2025 11:00 AM EDT Office Visit Pulmonology [address] [phone] Lanie Rincon NP Stage 4 very severe COPD by GOLD classification ([facility] V24, [facility] V28) (Primary Dx); Pulmonary emphysema, unspecified emphysema type ([facility] V24, [facility] V28); Dyspnea on exertion; Asthma-COPD overlap syndrome ([facility] V24, [facility] V28); Pulmonary nodule; Encounter for screening for malignant neoplasm of lung; Obesity (BMI 30-39.9) 05/06/2025 Anticoagulation - Warfarin Visit Coumadin Clinic - [address] [phone] José Reeder MD Arterial thrombosis ([facility] V24, [facility] V28) (Primary Dx); PAD (peripheral artery disease) ([facility] V24) from Last 3 Months Immunizations Immunization Administration Dates Next Due Influenza Quadravalent, MDCK , 0.5ml, with preservative (Flucelvax) 6mo and older 05/23/2017 Influenza trivalent, 0.5mL ( Fluzone High-dose) 65yo and older 06/18/2021,06/03/2020,06/14/2018 Influenza trivalent, with pr eservative (Fluzone; Afluria) 6mo and older 05/30/2015,08/28/2014,06/28/2013 Pfizer SARS-CoV-2 COVID-19, mRNA, LNP-S, preservative free 04/30/2021 Pneumococcal conjugate 13 va lent (Prevnar 13, PCV13) 2mo and older 05/23/2017 Pneumococcal conjugate 20 va lent (Prevnar 20, PCV 20) 2mo and older 12/11/2024 Pneumococcal polysaccharide 23 valent (Pneumovax 23) 2yo and older 09/25/2018 RSV, bivalent, protein subun it RSVpreF, 0.5mL, Preservative Free (Arexvy) 50yo and older 07/07/2023 Tdap Tetanus diptheria acell ular pertussis (Boostrix; Adacel) 7yo and older 07/30/2024,12/07/2022,08/18/2012 Zoster Live 07/31/2013 Zoster recombinant (Shingrix ) 19yo and older 12/07/2021,07/16/2020 Surgical History Surgery Date Site/Laterality Comments OTHER [...] Medical History Date Comments Asthma-COPD overlap syndrome ([facility] V24, [facility] V28) 05/28/2017 DX:Asthma-COPD overlap syndr ome ([facility]) PVD (peripheral vascular dis ease) ([facility] V24) 08/18/2012 DX:PVD (peripheral vascular disease) ([facility]); COMMENT: Have requested old records. 2010 patient underwent surgery for arterial embolism and peripheral vascular disease was told to remain anticoagulated indefinitely. Followed by Dr. Lucas ([facility] vascular) Hyperlipidemia 08/18/2012 DX:Hyperlipidemi a Deviated nasal septum 11/18/2016 DX:Deviate d nasal septum Coronary artery disease invo lving [place] coronary artery without angina pectoris 10/07/2015 DX:Coronary artery disease i nvolving [place] coronary artery without angina pectoris; COMMENT: Lexiscan MIBI 2012 - Small to medium in size, mild in intensity, distal anterior and apical defect that is suspicious for ischemia Colon polyp 11/13/2013 DX:Colon polyp Arterial embolism ([facility] V 24, [facility] V28) 10/19/2012 DX:Arterial embolism ([facility]) History of actinic keratoses 05/04/2018 DX: History [...] 0 Q uit: 02/08/2019 Smokeless Tobacco: Never Tobacco [...] for your loved ones. For example, child life specialist or elderly care for an older adult? [...] Orientation Straight 10/24/2024 1: 52 PM EDT Last Filed Vital Signs Vital Sign Reading Time Taken Comments Blood Pressure 137/69 07/11/2025 3:09 PM EST Pulse 50 07/11/2025 3:09 PM EST Temperature 37 C (98.6 F) 07/11/2025 3:09 PM EST Respiratory Rate 18 07/11/2025 3:09 PM EST Oxygen Saturation 98% 07/11/2025 3:09 PM EST Inhaled Oxygen Concentration - - Weight 109 kg (239 lb 12.8 oz) 07/11/2025 3:09 P M EST Height 182.9 cm (6') 07/11/2025 3:09 PM EST Body Mass Index 32.52 07/11/2025 3:09 PM EST Plan of Treatment Upcoming Encounters Date Type Department Care Team (Late st Contact Info) Description 10/15/2025 2:30 PM EDT Office Visit Adult Medicine [facility] [address] [place], [place] [phone] José Reeder MD [address] [place], [place] 11/26/2025 10:00 AM EDT Ancillary Procedure [facility] - [facility] [address] [facility] [address] [place] [phone] 11/28/2025 10:00 AM EDT Ancillary Procedure [facility] - [facility] [address] [facility] [address] [place] [phone] 01/03/2026 11:30 AM EDT Office Visit Vascular Surgery - [place] [address] [facility] [address] [place] [phone] Manuel Zaman MD [address] [place] [phone] 01/09/2026 2:45 PM EDT Office Visit Pulmonology - [place] 175 [facility] [address] [place] [phone] Lanie Rincon NP [address] [place] [phone] Health Maintenance Due Date Last Done Comments Drug Screen 1950 Non-Opioid Controlled Substance Agreement 1950 COVID-19 Vaccine (4 - 2025-26 season) 2025 04/30/2021, 10/05/2020, 09/15/2020 Influenza Vaccine (#1) 2025 , 07/07/2023, 05/24/2022, Additional history exists Falls Risk Assessment 06/14/2026 06/14/2025 Medicare Annual Wellness Visit 06/14/2026 06/14/2025 Social Influencers of Health Screening 06/14/2026 06/14/2025 Hypertension/CHF/CAD Annual BMP Blood Test 07/11/2026 07/11/2025, 12/11/2024, 12/01/2023 Cholesterol Screening (Lipid Panel) 12/11/2029 12/11/2024, 09/23/2023, 09/23/2023 DTaP,Tdap,and Td Vaccines (4 - Td or Tdap) 07/30/2034 07/30/2024, 12/07/2022, 08/18/2012 Colorectal Cancer Screening: Colonoscopy 02/06/2035 02/06/2025, 05/21/2019, 05/21/2019 Hepatitis C Screening Completed 02/22/2013 Abdominal Aortic Aneurysm (AAA) Screen Completed 05/31/2017, 05/31/2017 Zoster Vaccines Completed 12/07/2021, 04/2020, 07/31/2013 RSV Immunization Adult Patients Completed 07/07/2023 Pneumococcal Vaccine: 50+ Years Completed 12/11/2024, 09/25/2018, 05/23/2017, Additional history exists Depression Screening Completed 06/14/2025 HIB Vaccines Aged Out No longer eligi [...] Procedure Name Priority Date/Time Associated Diagnosis Comments CBC WITH AUTO DIFFERENTIAL Routine 07/11/2025 2:50 PM EST Polycythemia PROTHROMBIN TIME WITH INR Routine 07/11/2025 2:50 PM EST Arterial thrombosis (CMS/HCC V24, CMS/HCC V28) PAD (peripheral artery disease) ([facility] V24) Anticoagulation management encounter HEMOGLOBIN A1C Routine 07/11/2025 2:50 PM EST Prediabetes CBC AND DIFFERENTIAL Routine 07/11/2025 2:50 PM EST Polycythemia BASIC METABOLIC PANEL Routine 07/11/2025 2:50 PM EST PAD (peripheral artery disease) (CMS/HCC V24) Mixed hyperlipidemia Polycythemia Prediabetes Benign prostatic hyperplasia without lower urinary tract symptoms PROTHROMBIN TIME WITH INR Routine 06/10/2025 10:35 AM EST Arterial thrombosis (CMS/HCC V24, CMS/HCC V28) PAD (peripheral artery disease) ([facility]/HCC V24) Anticoagulation management encounter PROTHROMBIN TIME WITH INR Routine 06/03/2025 9:50 AM EDT Arterial thrombosis (CMS/HCC V24, CMS/HCC V28) PAD (peripheral artery disease) ([facility]/HCC V24) Anticoagulation management encounter EXTERNAL CLINICAL LAB 05/28/2025 EXTERNAL CLINICAL LAB 05/28/2025 PROTHROMBIN TIME WITH INR Routine 05/06/2025 9:18 AM EDT Arterial thrombosis (CMS/HCC V24, CMS/HCC V28) PAD (peripheral artery disease) ([facility]/HCC V24) Anticoagulation management encounter EXTERNAL COLONOSCOPY REPORT Routine 02/06/2025 3:37 PM EDT LIPID PANEL WITH REFLEX TO DIRECT LDL Routine 12/11/2024 2:39 PM EDT Pulmonary emphysema, unspecified emphysema type (CMS/HCC V24, CMS/HCC V28) Pulmonary nodule PAD (peripheral artery disease) ([facility]/HCC V24) Mixed hyperlipidemia Polycythemia Benign prostatic hyperplasia without lower urinary tract symptoms Prediabetes ABDOMINAL AORTIC ANEURYSM SCRREN Routine 05/31/2017 HEPATITIS C SCREENING Routine 02/22/2013 from Last 3 Months or Most Recently Relevant to Health Maintenance Results * (ABNORMAL) CBC auto differential (07/11/2025 2:50 PM EST) WBC 6.4 4.8 - 10.8 K/mcL LAB HEMETOLOGY METHOD 07/11/2025 6:12 PM [facility] RBC 5.30 4.50 - 5.50 M/mcL LAB HEMETOLOGY METHOD 07/11/2025 6:12 PM [facility] Hemoglobin 15.9 13.5 - 17.5 g/dL LAB HEMETOLOGY METHOD 07/11/2025 6:12 PM [facility] Hematocrit 49.8 42.0 - 54.0 % LAB HEMETOLOGY METHOD 07/11/2025 6:12 PM [facility] MCV 94.1 79.0 - 98.0 FL LAB HEMETOLOGY METHOD 07/11/2025 6:12 PM [facility] MCH 30.1 27.0 - 32.0 pcg LAB HEMETOLOGY METHOD 07/11/2025 6:12 PM [facility] MCHC 31.9(L) 32.0 - 37.0 g/dL LAB HEMETOLOGY METHOD 07/11/2025 6:12 PM [facility] RDW 13.8 11.0 - 15.0 % LAB HEMETOLOGY METHOD 07/11/2025 6:12 PM [facility] Platelets 268 130 - 400 K/mcL LAB HEMETOLOGY METHOD 07/11/2025 6:12 PM [facility] MPV 11.2(H) 7.0 - 11.0 FL LAB HEMETOLOGY METHOD 07/11/2025 6:12 PM [facility] NRBC 0.0 <1.0 % LAB HEMETOLOGY METHOD 07/11/2025 6:12 PM [facility] NRBC Absolute 0.00 <0.10 [facility] HEMETOLOGY METHOD 07/11/2025 6:12 PM [facility] Neutrophils Relative 64.0 % LAB HEMETOLOGY METHOD 07/11/2025 6:12 PM [facility] Lymphocytes Relative 19.2 % LAB HEMETOLOGY METHOD 07/11/2025 6:12 PM [facility] Monocytes Relative 12.6 % LAB HEMETOLOGY METHOD 07/11/2025 6:12 PM [facility] Eosinophils Relative 3.3 % LAB HEMETOLOGY METHOD 07/11/2025 6:12 PM [facility] Basophils Relative 0.6 % LAB HEMETOLOGY METHOD 07/11/2025 6:12 PM [facility] Immature Granulocytes Relative 0.3 % LAB HEMETOLOGY METHOD 07/11/2025 6:12 PM [facility] Neutrophils Absolute 4.10 1.50 - 7.00 [facility] LAB HEMETOLOGY METHOD 07/11/2025 6:12 PM [facility] Lymphocytes Absolute 1.23 1.00 - 5.00 K/mcL LAB HEMETOLOGY METHOD 07/11/2025 6:12 PM [facility] Monocytes Absolute 0.81 0.20 - 1.00 K/mcL LAB HEMETOLOGY METHOD 07/11/2025 6:12 PM [facility] Eosinophils Absolute 0.21 0.00 - 0.50 [facility] LAB HEMETOLOGY METHOD 07/11/2025 6:12 PM EST [facility] Basophils Absolute 0.04 0.00 - 0.20 [facility] LAB HEMETOLOGY METHOD 07/11/2025 6:12 PM EST [facility] Immature Granulocytes Absolute 0.02 0.00 - 0.03 [facility] LAB HEMETOLOGY METHOD 07/11/2025 6:12 PM EST [facility] Blood Venous blood specimen / Unknown Venipuncture / Unknown 07/11/2025 2:50 PM EST 07/11/2025 2:50 PM EST José Reeder MD LAB BLOOD ORDERABLES Final Result Performing Organization Address City/[facility]/ZIP Co de Phone Number [facility] [address] [place] [address], [place] [phone] * (ABNORMAL) Prothrombin time with INR (07/11/2025 2:50 PM EST) Only the most recent of4 resultswithin the time period is included. Pathologist [facility] Protime 32.2(H) 10.6 - 13.9 sec LAB COAGULATION METHOD 07/11/2025 6:19 PM EST [facility] INR 2.6 LAB COAGULATION METHOD 07/11/2025 6:19 PM EST [facility] Blood Venous blood specimen / Unknown Venipuncture / Unknown 07/11/2025 2:50 PM EST 07/11/2025 2:50 PM EST José Reeder MD LAB BLOOD ORDERABLES Final Result [facility] [address] [place] [address], [place] [phone] * Hemoglobin A1c (07/11/2025 2:50 PM EST) Hemoglobin A1C 5.7 <6.5 % LAB CHEMISTRY METHOD 07/11/2025 10:26 PM [facility] Mean Bld Glu Estim. 117 mg/dL LAB CHEMISTRY METHOD 07/11/2025 10:26 PM [facility] Blood Venous blood specimen / Unknown Venipuncture / Unknown 07/11/2025 2:50 PM EST 07/11/2025 2:50 PM EST us José Reeder MD LAB BLOOD ORDERABLES Final Result [facility] [address] [place] [address], * (ABNORMAL) Basic metabolic panel (07/11/2025 2:50 PM EST) Sodium 144 133 - 145 mmol/L 07/11/2025 7:46 PM [facility] Potassium 4.2 3.5 - 5.5 mmol/L 07/11/2025 7:46 PM [facility] Chloride 106 96 - 110 mmol/L 07/11/2025 7:46 PM [facility] CO2 32 21 - 32 mmol/L 07/11/2025 7:46 PM [facility] Anion Gap 6 3 - 11 07/11/2025 7:46 PM [facility] Glucose 66(L) 70 - 100 mg/dL 07/11/2025 7:46 PM [facility] BUN 18 5 - 25 mg/dL 07/11/2025 7:46 PM [facility] Creatinine 1.36(H) 0.70 - 1.30 mg/dL 07/11/2025 7:46 PM [facility] eGFR 55(L) >=60 mL/min/1. 73m2 07/11/2025 7:46 PM EST [facility] Comment:Calculation based on the Chronic Kidney Disease Epidemiology Collaboration (CKD-EPI) equation refit without adjustment for race. BUN/Creatinine Ratio 13.2 07/11/2025 7:46 PM EST [facility] Calcium 9.5 8.5 - 10.5 mg/dL 07/11/2025 7:46 PM EST [facility] Blood Venous blood specimen / Unknown Venipuncture / Unknown 07/11/2025 2:50 PM EST 07/11/2025 2:50 PM EST José Reeder MD LAB BLOOD ORDERABLES Final Result [facility] [address] [place] [address], [place] [phone] * External clinical lab (05/28/2025) Only the most recent of2 resultswithin the time period is included. Provider [facility] LAB BLOOD ORDERABLES Fin al Result * External Colonoscopy Report (02/06/2025 3:37 PM EDT) Anatomical Region Laterality Modality Endoscopy Historical Provider GI~PROCEDURE ORDERABLES F inal Result * (ABNORMAL) Lipid panel with reflex to direct LDL (12/11/2024 2:39 PM EDT) Cholesterol 139 0 - 200 mg/dL LAB CHEMISTRY METHOD 12/11/2024 6:01 PM EDT [facility] Triglycerides 228(H) 0 - 150 mg/dL LAB CHEMISTRY METHOD 12/11/2024 6:01 PM EDT [facility] HDL 45 >=40 mg/dL LAB CHEMISTRY METHOD 12/11/2024 6:01 PM EDT [facility] LDL Calculated 48 0 - 100 mg/dL LAB CHEMISTRY METHOD 12/11/2024 6:01 PM EDT [facility] VLDL Cholesterol Jovan 45.6 mg/dL LAB CHEMISTRY METHOD 12/11/2024 6:01 PM EDT [facility] Non HDL Chol. (LDL+VLDL) 94 <145 mg/dL LAB CHEMISTRY METHOD 12/11/2024 6:01 PM EDT [facility] Chol/HDL Ratio 3.1 0.0 - 4.4 LAB CHEMISTRY METHOD 12/11/2024 6:01 PM EDT [facility] Blood Venous blood specimen / Unknown Venipuncture / Unknown 12/11/2024 2:39 PM EDT 12/11/2024 2:39 PM EDT José Reeder MD LAB BLOOD ORDERABLES Final Result [facility] [address] [place] [address], * Abdominal Aortic Aneurysm Screen (05/31/2017) Pathologist [facility] Abdominal Aortic Aneurysm (AAA) Screening abstracted Anatomical Region Laterality Modality Other Historical Provider HEALTH MAINTENANCE Final Result * Hepatitis C Screening (02/22/2013) [facility] Hepatitis C Screening abstracted Historical Provider HEALTH MAINTENANCE Final Result from Last 3 Months or Most Recently Relevant to Health Maintenance Insurance MEDICARE [facility] Care Teams Telemetry Rn Relationship Specialty Start Date End Date José Reeder MD [address] [place] [address] PCP - General Internal Medicine 02/22/22
--- OUTSIDE RECORDS SUMMARY | 2025-07-23 07:52 | XMS_ITS | Data Portability ---
Author Organization [place] [facility], Allergy Address [address] [address] Care Team Providers Care Digital Production Artist Name Role Phone RADHAMES BEAL Primary Care [...] date No Other: Written by: Andressa Vance Not available 01/30/2024 14:30:14 Reason for Referral [...] Sensorine ural hearing loss of bilateral ears 774920379 Active 2017 Sensorine ural hearing loss, bilateral ; Note: Date Diagnosed : 04/26/2018 11:21 AM (H90.3) Not Available [facility] 4 03:03:16 Bilateral tinnitus 87444622301 02 Active 2017 Tinnitus, bilateral ; Note: Date Diagnosed : 04/26/2018 11:21 AM (H93.13) Not Available [facility] 4 03:03:18 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; Note: Date Diagnosed : 06/16/2021 3:42 PM (D10.5) Not Available [facility] 4 03:03:18 Chronic sinusitis 89635985 Active 2022 Other chronic sinusitis ; Note: Date Diagnosed : 3 9:02 AM (J32.8) Not Available [facility] 4 03:03:17 Allergic rhinitis 78664967 Active 2022 Allergic rhinitis, unspecifi ed; Note: Date Diagnosed : 3 8:56 AM (J30.9) Not Available [facility] 4 03:03:17 Deviated nasal septum 874048991 Active 2022 Deviated nasal septum; Note: Date Diagnosed : 3 9:02 AM (J34.2) Not Available [facility] 4 03:03:18 Nasal congestio n 07272275 Active 2022 Nasal congestio n; Note: Date Diagnosed : 3 8:56 AM (R09.81) Not Available [facility] 4 03:03:16 Hypertrop hy of nasal turbinate s 89656364 Active 2023 Hypertrop hy of nasal turbinate s; Note: Date Diagnosed : 12/14/2023 3:53 PM (J34.3) Not Available [facility] 4 03:03:17 Follow-up visit Active 2023 Medical surveilla nce following completed treatment ; Note: Date Diagnosed : 12/19/2023 12:17 PM (Z09) Not Available [facility] 4 03:03:17 Seasonal allergic rhinitis 090889859 Active 2023 JANI MCGARRY MD 100 [facility] 100, [place], [address] , [facility] 4 14:52:31 Non-aller gic rhinitis 54096076041 1 Active 2023 JANI MCGARRY MD 100 [facility],[place] [address], [place], [address] , [facility] - [facility] 4 14:52:31 Problem Notes None recorded. Procedures Surgical History Date Name Laterality Status Provider Name and Address Organization Details Recorded Time 4 Allergy Testing-Full completed TAWNY MICHEL 100 [facility],[place] [address], [place], [address], [facility] 01/30/2024 14:27:50 4 NasalEndosco py_DP completed JANI MCGARRY MD 100 [facility],[place] [address], [place], [address], [facility] 01/23/2024 14:52:20 Imaging Results None recorded. Procedure Notes None recorded. Medical Equipment None Reported. Medications Name Sig Start Date Stop Date Status Note LastModified by Organization Details LastModified Time aspirin 81 mg tablet,ashanti yed release 2017 active Medication ID: [id number] Bra nd Name: aspirin Se nd Method: E-Prescrib ed Subs Allowed: subs OK Medicat ionGeneric Name: aspirin Not Available Not Available Not Available triamcinolo ne acetonide 0.1 % topical cream 01/29 completed Medication ID: [id number] Dur ation Value: 8 Brand Name: triamcinol one acetonide Send Method: E-Prescrib ed Subs Allowed: subs OK Medicat ionGeneric Name: triamcinol one acetonide Medication ID: [id number] Dur ation Value: 8 Brand Name: triamcinol one acetonide Send Method: E-Prescrib ed Subs Allowed: subs OK Medicat ionGeneric Name: triamcinol one acetonide Not Available Not Available Not Available warfarin 5 mg tablet 2017 active Medication ID: [id number] Dur ation Value: 30 Brand Name: warfarin [...] Updated DateTime 01/23/2024 182.88 cm Mary Levine [place] - [facility] 01/23/2024 14:33:57 Date Recorded Body height Oxygen saturation Heart rate Body mass index (BMI) Body weight Provider Name and Address Organization Details Last Updated DateTime 01/30/2024 182.88 cm 96 % 67 /min 31.2 kg/m2 117041.2 5 g TAWNY MICHEL [address] [place] [address], [address] , [place] - [facility] 13:24:25 Date Recorded Body height Body mass index (BMI) Body weight Provider Name and Address Organization Details Last Updated DateTime 02/14/2024 182.88 cm 31.2 kg/m2 658790.25 g Mary Levine [facility] 02/14/2024 13:06:18 Social History None recorded. Functional Status None recorded. Mental Status None recorded. Family History Nothing Reported. Medical History No medical history recorded. Past Encounters Encounter ID Performer Location Encounter Start Date Encounter Closed Date Diagnosis/Indication Diagnosis SNOMED-CT Code Diagnosis ICD10 Code Diagnosis IMO Codes Diagnosis Note [id number] JANI MCGARRY MD [facility] 100 [place] [address] 01/23/2024 14:17:17 01/23/2024 14:54:31 Allergic rhinitis 13939706 J30.9 Exam and history are consistent with allergic rhinitis which may explain congestion which remains. We will obtain allergy testing to clarify the extent of allergy with f/u to review. Nasal congestion 3465533 0 R09.81 Notes improvemen t after surgery but still congested. May have an allergy component. Non-allergic rhinitis 31 31250533 01 J31.0 Seasonal a llergic rhinitis 072536686 J30.2 [id number] TAWNY MICHEL All[facility] 100 [facility] [address] [place] [address] 01/30/2024 13:09:00 01/30/2024 16:16:31 Allergic rhinitis 20259697 J30.9 [id number] JANI MCGARRY MD [facility] [place] [address] [facility] [place] [address] 02/14/2024 12:56:54 02/14/2024 13:23:17 Allergic rhinitis 64844962 J30.9 Allergy testing showed moderate allergy to [...] Name 02/11/2024 2 FOR LIFE () Jhonathan Rodgersjuan [id number] Jhonathan Rodgersjuan 02/11/2024 1 [place]IC[place]: [employer] Jhonathan Kevin [id number] Jhonathan Kevin Notes Date Note Type Note Provider Name and Address Organization Details Recorded Time 01/23/2024 text/html ROS as noted in the HPI He had a septoplasty a month ago. Notes improved breathing overall but still mouth breathes and feels congested. JANI MCGARRY MD [address] [place] [address], [phone], [place] - [facility] 01/23/2024 14:53:17 02/14/2024 text/html ROS as noted in the HPI Hx of septoplasty and turbinate reduction 12/14/23. Still has congestion. Allergy testing was performed and showed moderate allergy to dust and mold. He says he is breathing much better through his nose than before but still has congestion. JANI MCGARRY MD [address] [place] [address],[address], [address], [place] - [facility] 02/14/2024 13:22:23
--- OUTSIDE RECORDS SUMMARY | 2025-07-23 07:52 | XMS_ITS | Encounter Summary ---
Author Organization [facility] [place] [address] Care Team Providers Care Paper Sealer Name Role Phone José Reeder MD Primary Care Provider [phone] Encounter Details Date Type Department Care Team (Late st Contact Info) Description 07/11/2025 Results Follow-Up Adult Medicine [address] [phone] José Reeder MD [address] [place] [address] Social History Tobacco Use Types Packs/Day Years [...] for your loved ones. 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 [...] PM EDT documented as of this encounter Plan of Treatment Upcoming Encounters Date Type Department Care Team (Late st Contact Info) Description 10/15/2025 2:30 PM EDT Office Visit Adult Medicine [address] [address] José Reeder MD [address] [place] [address] 11/26/2025 10:00 AM EDT Ancillary Procedure [facility] Cardiology [facility] [address] [facility] [address] [place] [address] 11/28/2025 10:00 AM EDT Ancillary Procedure [facility] Cardiology [facility] [address] [facility] [address] [place] [address] 01/03/2026 11:30 AM EDT Office Visit Vascular Surgery - [place] [address] [facility] [address] [place] [address] Manuel Zaman MD [address] [place] [phone] 01/09/2026 2:45 PM EDT Office Visit Pulmonology - [place] [address] [facility] 200 [place] [address] Lanie Rincon NP [address] [place] [phone] documented as of this encounter Visit Diagnoses Not on filedocumented in this encounter Additional Health Concerns Assessment Noted Time PHQ-9 Depression Total Score: 0 06/14/20 25 3:01 PM EST A fall risk assessment has been complete d for the patient 06/14/2025 2:59 PM EST documented as of this encounter Care Teams Paper Sealer Relationship Specialty Start Date End Date José Reeder MD [address] [place], [place] PCP - General Internal Medicine 02/22/22 documented as of this encounter
--- OUTSIDE RECORDS SUMMARY | 2025-07-23 07:52 | XMS_ITS | Clinical Summary ---
Author Organization [facility] Prior to 01/05/[address] [place] [address] Care Team Providers Care Aviation Electronic Warfare Operator Name Role Phone Tere Singleton MD Primary Care Provider [phone] Allergies No known active allergies Medications Medication [...] age to complete this topic Care Teams Aviation Electronic Warfare Operator Relationship Specialty Start Date End Date Tere Singleton MD PCP - General Internal Medicine 10/06/18
--- OUTSIDE RECORDS SUMMARY | 2025-07-23 07:52 | XMS_ITS | Patient Health Record ---
Author Organization [facility] Address [address] [place] [address] Care Team Providers Care Machine Turner Name Role Phone Adonis Hutton Jr Reason For Referral No Information Plan Of Treatment No Information
== END ==
LOC: HO.SL 07:48
PROVIDERS: Visit Provider Psychiatry & Neurology Neurology
DX: G47.33 Obstructive sleep apnea (adult) (pediatric) (principal)
CPT/HCPCS: 95806

== ENCOUNTER → 2025-07-23 08:00 | Outpatient (BNV) | payer MEDICARE, OTHER, SELFPAY | PROVIDERS: Visit Provider Psychiatry & Neurology Neurology | DX: G47.33 Obstructive sleep apnea (adult) (pediatric) (principal) | CPT/HCPCS: 95806 ==